=== PATIENT | male | born 1965 | race Caucasian/White ===

== ENCOUNTER 2017-01-31 00:44 | Inpatient (IN) | payer SELFPAY ==
[~2017-01-31] VITALS: Ht 170.2 cm; Wt 163.3 kg
[~2017-01-31 00:44] MED LIST: ACET500T33 PO; ASPI81TA2 PO; ATOR20TA58 PO; CEPH-264 PO; CYAN500T PO; DIPH25CA58 PO; DOCU-27 PO; FURO20TA3 PO; HYDR-2666 PO; LISI10TA2 PO; MORP30TA PO; MULT1TAB13 PO; NAPR500T3 PO; POTA20TA4 PO
--- NOTE | 2017-01-31 00:48 | ED.ADGEN ---
Past History Past Medical History: Cancer, Depression, Hypertension, Other Past Surgical History: Other Smoking: Non-smoker Alcohol Use: None Drug Use: None Adult General Chief Complaint Chief Complaint ".. I ve been short of breath the last 10 days.. but much more tonight... My had a cold.. but she got over it... but I ve just gotten worse..." HPI HPI Patient is a 51 year old male who presents with above hx and complaints non- productive cough and wheezing. Patient has been using his inhaler without any improvement. Patient denies any travel. Patient denies any other ill contacts other than his . Patient has significant medical history of non-Hodgkin's lymphoma and chemotherapy at . Has been in remission for the past 2 years. Patient did get a flu vaccination in September, But on a prednisone taper right afterwards. Patient has had Pneumovax. Patient normally follows with at . Patient also has a history of hypertension and depression. Review of Systems Review of Systems Constitutional: Subjective Hx of fever or chills [] Eyes: Denies change in visual acuity, redness, or eye pain [] HENT: Hx off nasal congestion and sore throat [] Respiratory: Hx non productive cough and shortness of breath [] Cardiovascular: No additional information not addressed in HPI [] GI: Denies abdominal pain, nausea, vomiting, bloody stools or diarrhea [] : Denies dysuria or hematuria [] Musculoskeletal: Denies back pain or joint pain [] Integument: Denies rash or skin lesions [] Neurologic: Denies headache, focal weakness or sensory changes [] Endocrine: Denies polyuria or polydipsia [] Family History Family History with cold Current Medications Current Medications Current Medications Medications (Trade) Dose Ordered Sig/Perry Start Time Stop Time Status Last Admin Dose Admin Albuterol Sulfate (Ventolin) 2.5 mg 1X PRN PRN 01/31/17 04:30 01/31/17 14:37 DC 01/31/17 14:15 2.5 MG Albuterol/ Ipratropium (Duoneb) 3 ml 1X ONCE 01/31/17 03:00 01/31/17 03:01 DC 01/31/17 02:36 3 ML Aspirin 324 mg 324 mg 1X ONCE 01/31/17 01:15 01/31/17 01:16 DC 01/31/17 01:46 324 MG Azithromycin (Zithromax) 500 mg 1X ONCE 01/31/17 03:30 01/31/17 03:31 DC 01/31/17 03:37 500 MG Ceftriaxone Sodium (Rocephin Im) 1 gm 1X ONCE 01/31/17 01:30 01/31/17 01:31 DC 01/31/17 01:47 1 GM Diphenhydramine HCl (Benadryl) 50 mg QIDPRN PRN 01/31/17 04:30 01/31/17 14:38 DC Info (Do NOT chart on this entry -- for MONITORING) 1 each PRN DAILY PRN 01/31/17 03:15 02/02/17 03:14 Iohexol (Omnipaque 300 Mg/ml) 75 ml 1X ONCE 01/31/17 03:15 01/31/17 03:16 DC 01/31/17 03:20 75 ML Lactated Ringer's (Iv Lactated Ringers) 1,000 ml @ 100 mls/hr Q10H 01/31/17 01:00 01/31/17 01:46 100 MLS/HR Methylprednisolone Sodium Succinate (Solu-Medrol 125mg Vial) 125 mg 1X ONCE 01/31/17 01:30 01/31/17 01:31 DC 01/31/17 01:47 125 MG Ondansetron HCl (Zofran) 4 mg PRN Q4HRS PRN 01/31/17 04:30 02/01/17 04:29 Potassium Chloride (KCl Oral Soln) 40 meq 1X ONCE 01/31/17 04:00 01/31/17 04:01 DC 01/31/17 03:37 40 MEQ See nursing for home meds. Allergies Allergies Allergies Coded Allergies Type Severity Reaction Last Updated Verified cat pelt standardized extract Allergy Severe Anaphylaxis 06/28/14 Yes Physical Exam Physical Exam Constitutional: in acute distress, non-toxic appearance. [] HENT: Normocephalic, atraumatic, bilateral external ears normal, oropharynx moist,injected pharynx, no oral exudates, nose rhinorrhea. Eyes: PERRLA, EOMI, conjunctiva normal, no discharge. [] Neck: Normal range of motion, no tenderness, supple, no stridor. [] More 17 inches circumference Cardiovascular: Tachycardia Heart rate regular rhythm, no murmur [] Lungs & Thorax: Bilateral breath equal with at apex, basilar crackles on auscultation . Coughing spasms. Non-productive. Scattered wheezes.[]. Peak flow 200- 400/predicted 520. Abdomen: Bowel sounds normal, soft, no tenderness, no masses, no pulsatile masses. Obese. Skin: Warm, dry, no erythema, no rash. [] Veinous stasis changes to legs. Back: No tenderness, no CVA tenderness. [] Extremities: No tenderness, no cyanosis, no clubbing, ROM intact, no edema. [] Neurologic: Alert and oriented X 3, normal motor function, normal sensory function, no focal deficits noted. [] Psychologic: Affect anxious, judgement normal, mood normal. [] Current Patient Data Vital Signs Vital Signs Date Time Temp Pulse Resp B/P Pulse Ox O2 Delivery O2 Flow Rate FiO2 01/31/17 02:35 95 Room Air 01/31/17 02:19 75 24 135/62 01/31/17 01:06 97.9 Lab Results Laboratory Tests Test 01/31/17 01:45 01/31/17 01:50 01/31/17 02:35 White Blood Count 13.2x10^3/uL (4.0-11.0) H Red Blood Count 4.45x10^6/uL (4.30-5.70) Hemoglobin 12.6g/dL (13.0-17.5) L Hematocrit 38.6% (39.0-53.0) L Mean Corpuscular Volume 87fL (79-100) Mean Corpuscular Hemoglobin 28pg (25-35) Mean Corpuscular Hemoglobin Concent 33g/dL (31-37) Red Cell Distribution Width 14.4% (11.5-14.5) Platelet Count 224x10^3/uL (140-400) Neutrophils (%) (Auto) 56% (31-73) Lymphocytes (%) (Auto) 33% (24-48) Monocytes (%) (Auto) 8% (0-9) Eosinophils (%) (Auto) 2% (0-3) Basophils (%) (Auto) 0% (0-3) Neutrophils # (Auto) 7.4x10^3uL (1.8-7.7) Lymphocytes # (Auto) 4.3x10^3/uL (1.0-4.8) Monocytes # (Auto) 1.1x10^3/uL (0.0-1.1) Eosinophils # (Auto) 0.3x10^3/uL (0.0-0.7) Basophils # (Auto) 0.0x10^3/uL (0.0-0.2) Prothrombin Time 9.9SEC (9.4-11.4) Prothrombin Time INR 1.0 (0.9-1.1) PTT 26SEC (23-33) D-Dimer (Yesenia) 0.33mg/L (0.00-0.50) Sodium Level 144mmol/L (136-145) Potassium Level 3.3mmol/L (3.5-5.1) L Chloride Level 106mmol/L (98-107) Carbon Dioxide Level 33mmol/L (21-32) H Anion Gap 5 (6-14) L Blood Urea Nitrogen 12mg/dL (8-26) Creatinine 1.2mg/dL (0.7-1.3) Estimated GFR (Cockcroft-Gault) 64.4 Glucose Level 127mg/dL (70-99) H Calcium Level 9.4mg/dL (8.5-10.1) Magnesium Level 1.9mg/dL (1.8-2.4) Total Bilirubin 0.2mg/dL (0.2-1.0) Direct Bilirubin 0.1mg/dL (0.0-0.2) Aspartate Amino Transferase (AST) 50U/L (15-37) H Alanine Aminotransferase (ALT) 68U/L (16-63) H Alkaline Phosphatase 88U/L (46-116) Creatine Kinase 287U/L (39-308) Creatine Kinase MB (Mass) 1.7ng/mL (0.0-3.6) Creatine Kinase MB Relative Index 0.6% (0-4) Troponin I Quantitative < 0.017ng/mL (0-0.055) WV-Arv-U-Type Natriuretic Peptide 125pg/mL (0-124) H Total Protein 6.9g/dL (6.4-8.2) Albumin 3.3g/dL (3.4-5.0) L Lipase 146U/L (73-393) Thyroid Stimulating Hormone (TSH) 2.262uIU/mL (0.358-3.740) Influenza Type A (Rapid) Negative (NEGATIVE) Influenza Type B (Rapid) Negative (NEGATIVE) Urine Collection Type Void Urine Color Straw Urine Clarity Clear Urine pH 5.5 Urine Specific [place] 1.015 Urine Protein Neg (NEG-TRACE) Urine Glucose (UA) Negmg/dL (NEG) Urine Ketones (Stick) Negmg/dL (NEG) Urine Blood Neg (NEG) Urine Nitrite Neg (NEG) Urine Bilirubin Neg (NEG) Urine Urobilinogen Dipstick 0.2mg/dL (0.2 mg/dL) Urine Leukocyte Esterase Neg (NEG) Urine RBC 0/HPF (0-2) Urine WBC 0/HPF (0-4) Urine Squamous Epithelial Cells Few/LPF Urine Bacteria Few/HPF (0-FEW) Urine Opiates Screen Neg (NEG) Urine Methadone Screen Neg (NEG) Urine Barbiturates Neg (NEG) Urine Phencyclidine Screen Neg (NEG) Urine Amphetamine/Methamphetamine Neg (NEG) Urine Benzodiazepines Screen Neg (NEG) Urine Cocaine Screen Neg (NEG) Urine Cannabinoids Screen Neg (NEG) Urine Ethyl Alcohol Neg (NEG) Group A Streptococcus Rapid Negative (NEGATIVE) EKG EKG My interpretation of EKG shows sinus 77, Lt. axis, non-specific contour changes , anteroseptal area, no findings of acute STEMI with contralateral changes. [] Radiology/Procedures Radiology/Procedures My interpretation of CXR show port. patchy viral pattern. No large infiltrate. CT results pending at time of admission, my interpretation show no large infiltrate or large PE in larger vessels. Course & Med Decision Making Course & Med Decision Making Pertinent Labs and Imaging studies reviewed. (See chart for details) Discussed presentation, testing and tx. plan with Dr. Machuca Will admit for further eval and tx. [] Final Impression Final Impression 1. Dyspnea[] 2. Leukocytosis 3. Anemia 4. Morbid Obesity 5. Hx of Non- Hodgkin's lymphoma postchemotherapy- 2 yrs ago 6. Elevated AST/ALT 7. Hypokalemia 8. Hx. of Sleep Apnea Problems: Dragon Disclaimer Dragon Disclaimer This electronic medical record was generated, in whole or in part, using a voice recognition dictation system. GARY OTTO MD Jan 31, 2017 00:48
[2017-01-31] MEDS ORDERED: IV RINGERS SOLUTION,LACTATED 1,000 ML IV SCH (01:00)
--- NOTE | 2017-01-31 01:00 | EKG ---
[address] [address] Test Date: 2017-01-31 Test Time: 01:00:09 Pat Name: SORIN QUINTEROS Department: Room: Gender: M Front End Software Engineer: MANOLO : 1965 Requested By: GARY OTTO Order Number: [id number] Reading MD: Measurements Intervals [place] Rate: 77 P: 51 SC: 164 QRS: -16 QRSD: 96 T: 52 QT: 374 QTc: 425 Interpretive Statements SINUS RHYTHM LEFTWARD AXIS QRS(T) CONTOUR ABNORMALITY CONSIDER ANTEROSEPTAL MYOCARDIAL DAMAGE POSSIBLY ABNORMAL ECG RI6.01 Unconfirmed report Compared to ECG 05/23/2013 20:02:42 Left anterior fascicular block no longer present
[2017-01-31] MEDS ORDERED: IPRATRPIUM/ALBUTEROL 0.5/2.5MG 3 ML NEBU. NEB ONE ×2 (01:15→03:00)
[2017-01-31] MEDS ORDERED: ASPIRIN 81 MG TAB.CHEW PO ONE (01:15)
[2017-01-31] MEDS ORDERED: methylPREDNISolone SOD SUCC PF 125 MG/2 ML VIAL. IV ONE (01:30)
[2017-01-31] MEDS ORDERED: CEFTRIAXONE IM 1 GM VIAL. IM ONE (01:30)
[2017-01-31 02:12] LABS: BASO % 0 % (0-3); EOS # 0.3 x10^3/uL (0.0-0.7); EOS % 2 % (0-3); HEMATOCRIT 38.6 % (39.0-53.0); HEMOGLOBIN 12.6 g/dL (13.0-17.5); LYMPH # 4.3 x10^3/uL (1.0-4.8); LYMPH % 33 % (24-48); MEAN CORPUSCULAR HEMOGLOBIN 28 pg (25-35); MEAN CORPUSCULAR HGB CONC 33 g/dL (31-37); MEAN CORPUSCULAR VOLUME 87 fL (79-100); MONO # 1.1 x10^3/uL (0.0-1.1); MONO % 8 % (0-9); NEUT # 7.4 x10^3uL (1.8-7.7); NEUT % 56 % (31-73); PLATELET COUNT 224 x10^3/uL (140-400); RED BLOOD COUNT 4.45 x10^6/uL (4.30-5.70); RED CELL DISTRIBUTION WIDTH 14.4 % (11.5-14.5); WHITE BLOOD COUNT 13.2 x10^3/uL (4.0-11.0)
[2017-01-31 02:16] LABS: BILIRUBIN,URINE NEG (NEG); CLARITY,URINE CLEAR; COLOR,URINE STRAW; GLUCOSE,URINE NEG (NEG); NITRITE,URINE NEG (NEG); RBC,URINE 0 /HPF (0-2); UROBILINOGEN,URINE 0.2 mg/dL (0.2 mg/dL)
[2017-01-31 02:17] LABS: BACTERIA,URINE FEW /HPF (0-FEW); SQUAMOUS EPITHELIAL CELL,UR FEW /LPF; WBC,URINE 0 /HPF (0-4)
[2017-01-31 02:21] LABS: INFLUENZA A PATIENT NEGATIVE (NEGATIVE); INFLUENZA B PATIENT NEGATIVE (NEGATIVE)
[2017-01-31 02:21] LABS: BARBITURATES NEG (NEG); BENZODIAZEPINES NEG (NEG); CANNABINOIDS NEG (NEG); COCAINE NEG (NEG); METHADONE NEG (NEG); OPIATES NEG (NEG); PHENCYCLIDINE NEG (NEG)
[2017-01-31 02:22] LABS: AMPHETAMINE/METHAMPHETAMINE NEG (NEG)
[2017-01-31 02:35] LABS: ALBUMIN 3.3 g/dL (3.4-5.0); CALCIUM 9.4 mg/dL (8.5-10.1); CREATININE 1.2 mg/dL (0.7-1.3); DIRECT BILIRUBIN 0.1 mg/dL (0.0-0.2); GFR 64.4; MAGNESIUM 1.9 mg/dL (1.8-2.4); POTASSIUM 3.3 mmol/L (3.5-5.1); TOTAL BILIRUBIN 0.2 mg/dL (0.2-1.0); TOTAL PROTEIN 6.9 g/dL (6.4-8.2)
[2017-01-31] MEDS ORDERED: DIPHENHYDRAMINE 50 MG/ML VIAL IVP ONE (03:15)
[2017-01-31] MEDS ORDERED: CONTRAST GIVEN MC PRN (03:15)
[2017-01-31] MEDS ORDERED: IOHEXOL 300 MG/ML 75 ML VIAL. IV ONE (03:15)
[2017-01-31] MEDS ORDERED: AZIT250T PO (03:21)
[2017-01-31] MEDS ORDERED: PRED50TA PO (03:21)
[2017-01-31] MEDS ORDERED: ALBU18HF IH (03:24)
[2017-01-31] MEDS ORDERED: AZITHROMYCIN 250 MG TABLET. PO ONE (03:30)
--- NOTE | 2017-01-31 03:37 | RAD ---
CT thorax with contrast Indication: Chest pain, cough and dyspnea. Axial imaging through the chest was performed after the administration of intravenous contrast utilizing the CT angiography protocol. Multiplanar, 3D and MIP reformations were also performed. Comparison is made with prior CT from 08/10/2012. Overall quality appears to be suboptimal, perhaps owing to patient body habitus. Images are very grainy. Central pulmonary arteries appear to be patent. No thromboembolism or filling defects are seen. The thoracic aorta is normal caliber. No definite dissection is identified. No pericardial or pleural fluid is identified. No pulmonary infiltrates, nodules or masses are seen. Impression: Limited quality. No definite evidence of pulmonary embolism or thoracic aortic dissection is identified. Electronically signed by: Abdi Chopra MD (Jan 31, 2017 03:36:25)
[2017-01-31] MEDS ORDERED: POTASSIUM CHLORIDE 20 MEQ/15 ML ORAL LIQUID. PO ONE (04:00)
[2017-01-31] MEDS ORDERED: ALBUTEROL SULFATE 2.5 MG/3 ML NEBU. NEB PRN (04:30)
[2017-01-31] MEDS ORDERED: ONDANSETRON PF 4 MG/2 ML VIAL. IV PRN (04:30)
[2017-01-31] MEDS ORDERED: DIPHENHYDRAMINE HCL 50 MG CAPSULE PO PRN (04:30)
[2017-01-31 05:40] VITALS: BP 131/85
[2017-01-31] MEDS: IPRATRPIUM/ALBUTEROL 0.5/2.5MG 3 ML NEBU. NEB SCH ×4 (06:06→20:32)
--- NOTE | 2017-01-31 07:59 | RAD ---
Indication: Dyspnea today. Non-Hodgkin's lymphoma in remission. Technique: Two-view chest radiograph was obtained. Comparison is from May 23, 2013. Findings: There is minimal atelectasis or less likely infiltrate in the left lung base. The lungs otherwise are clear. Cardiomediastinal silhouette is probably within normal limits, is unchanged. Slight widening of the mediastinum superiorly had similar appearance on prior. Subsequent CT chest does not demonstrate any superior mediastinal adenopathy. There is no pleural effusion. Prominent pleural fat bilaterally is noted. Port is noted. Impression: Minimal atelectasis in the left lung base.
[2017-01-31 08:00] VITALS: BP 141/56
[2017-01-31] MEDS: AZITHROMYCIN 250 MG TABLET. PO SCH (08:20)
[2017-01-31] MEDS ORDERED: methylPREDNISolone SOD SUCC PF 125 MG/2 ML VIAL. IV SCH (09:00)
[2017-01-31] MEDS: ACETAMINOPHEN 500 MG TABLET PO PRN ×2 (11:01→21:14)
[2017-01-31 12:00] VITALS: BP 125/85
[2017-01-31] MEDS ORDERED: ACETAMINOPHEN 500 MG TABLET PO PRN (14:15)
[2017-01-31] MEDS ORDERED: DOCUSATE SODIUM 100 MG CAPSULE PO PRN (14:15)
--- NOTE | 2017-01-31 14:37 | ACF ---
Admission Criteria Forms PULMONARY DISEASE GRG Clinical Indications for Admission to Inpatient Care ( Place 'X' for any and all applicable criteria): Hospital admission is needed for appropriate care of the patient because of ANY ONE of the following(1): [ ]I. Impending or actual respiratory arrest ( Use Respiratory Failure Criteria for severe respiratory disease and long-term mechanical ventilation patients) (4) [X ]II. Severe airflow or ventilation abnormalities (not responsive to emergency and observation care treatment as appropriate) as indicated by ANY ONE of the following(5)(6)(7)(8) : [ ]a) PCO2 > 42 mm Hg (5.6 kPa) and pH < 7.35 (new) [ ]b) Documented PCO2 increase > 5 mm Hg (0.7 kPa) from disease baseline [ ]c) Airflow measurements[A] < 60% of previous best or predicted ( e.g., PEF <300 L/minute) despite intensive emergent treatment[B] [X ]d) Required respiratory treatments that are performable only in acute inpatient setting [ ]III. Severe respiratory findings (not responsive to emergency and observation care treatment as appropriate) including ANY ONE of the following(5)(8)(9): [ ]a) Respiratory distress as indicated by ALL of the following(5)(10): [ ]i) Patient with ANY ONE of the following: [ ]1) Dyspnea (difficulty breathing) [ ]2) Abnormal breathing pattern (eg, chest retractions) [ ]3) Tachypnea [ ]4) Other evidence of difficulty breathing [ ]ii) Evidence of respiratory compromise indicated by ANY ONE of the following: [ ]1) Hypoxemia [ ]2) Altered mental status [ ]3) Other evidence of respiratory compromise (eg, pulmonary edema on chest x-ray) [ ]b) Stridor [ ]c) Gross hemoptysis(11) [ ]d) Acute cyanosis [ ]IV. High-risk pulmonary infection as indicated by ANY ONE of the following( 19)(20)(21)(22): [ ]a) Temperature less than 95 degrees F(35 degrees C) or greater than 103.1 degrees F(39.5 degrees C) [ ]b) Hemodynamic instability that remains after emergency or observation level care (as appropriate) [ ]c) Immunocompromised patient (eg, AIDS, post transplant, neutropenic) [ ]d) History of severe COPD [ ]e) History of severely symptomatic congestive heart failure [ ]f) Other high-risk comorbidity (eg, poorly controlled diabetes, cirrhosis, chronic renal insufficiency) [ ]g) Hypoxemia (new) [ ]h) Outpatient, observation, or recovery facility therapy has failed, is not appropriate, or is not feasible [ ]V. Severe atelectasis or lung collapse(15)(16) [ ]. Tuberculosis requiring inpatient treatment as indicated by ANY ONE of the following(17)(18): [ ]a) New positive acid-fast bacilli sputum smear [ ]b) Positive acid-fast bacilli smear (under current treatment), with ANY ONE of the following: [ ]i) Unexposed household contacts [ ]ii) Infants or immunosuppressed household contacts [ ]iii) Patient unable or unwilling to avoid exposing others [ ]iv) Severe immunocompromised patient (eg, AIDS, post transplant, neutropenic) [ ]VII. Empyema or lung abscess(13)(14) [ ]VIII. Severe pulmonary arterial hypertension or pulmonary vascular disease requiring inpatient care indicated by ANY ONE of the following(24)(25): [ ]a) Initiation or change of vasodilators (IV, subcutaneous, or inhaled) or other vasoactive medications needed [ ]b) IV anticoagulation needed (eg, immediate anticoagulation necessary, alternatives not appropriate) [ ]c) Arterial or pulmonary artery catheter monitoring needed due to infusion or other treatment [ ]IX. Chronic lung disease with severe deterioration (not responsive to emergency and observation care treatment as appropriate) as indicated by ANY ONE of the following (6)(12): [ ]a) SaO2 5% below baseline in patient with chronic hypoxemia [ ]b) New requirement for supplemental oxygen to keep SaO2 at baseline or acceptable level [ ]c) Required supplemental oxygen performable only in acute inpatient setting [ ]d) Severe airflow or ventilation abnormalities [ ]e) Rapid rate of exacerbation onset [ ]f) Previously mobile patient unable to walk between rooms [ ]g) Inability to eat or sleep due to dyspnea [ ]h) Altered mental status [ ]X. Cystic fibrosis with severe deterioration as indicated by ANY ONE of the following(26)(27): [ ]a) Severe exacerbation that does not respond to intensified home therapy [ ]b) Pneumonia [ ]c) Hemoptysis [ ]d) Atelectasis [ ]e) Pneumothorax [ ]f) Respiratory failure [ ]g) Severe exacerbation with patient unable to perform prescribed treatments at home [ ]XI. Severe right heart failure as indicated by ANY ONE of the following(24) (25): [ ]a) Increasing organ failure (eg, liver congestion with significant and worsening or new elevation of transaminases) [ ]b) Anasarca [ ]c) Angina that requires inpatient care (eg, not treatable in emergency or observation level of care) [ ]d) Respiratory distress [ ]e) Syncope [ ]f) SBP < 90 mm Hg (new) [ ]XII. Injury requiring inpatient care (medical) as indicated by ANY ONE of the following(28): [ ]a) Significant inhalation injury (eg, smoke inhalation, other toxic inhalation) (29)(30)(31) [ ]b) Airway obstruction that remains or is unstable after emergency or observation level care(32) [ ]c) Severe pain requiring acute inpatient management [ ]d) Lung contusion [ ]e) Bronchial tree injury [ ]f) Air or fat emboli(33) [ ]g) Other injury not treatable in emergency or observation level care (eg, hemothorax) (34) [ ]XIII. Pulmonary hemorrhage or significant hemoptysis(11)(35)(36) [ ]XIV. Inpatient palliative care needed[C](37)(38)(39)(40) [ ]XV. Complications of lung transplant (eg, rejection, failure, respiratory infection) (23) [ ]XVI. Pulmonary Disease and ANY ONE of the following: [ ]a) General Admission Criteria [ ]b) Pediatric General Admission Criteria [facility] has been revised. The portions of the content which have been revised are identified through the use of italic text or in bold, and [facility] has neither reviewed nor approved the modified material. All other unmodified content is copyright [facility]. Please see references footnoted in the original [facility] edition 2016 GENERAL ADMISSION CRITERIA (Place 'X' for any and all applicable criteria): Admission is indicated for ANY ONE of the following: [ ]I. Hemodynamic instability as indicated by ANY ONE of the following(1)(2) (3)(4)(5): [ ]a) Vital sign abnormality not readily corrected by appropriate treatment within 12 to 24 hours indicated by ANY ONE of the following: [ ]i) Hypotension [ ]ii) Symptomatic Tachycardia unresponsive to treatment (eg , analgesia, fluids, sedation as indicated) [ ]iii) Orthostatic vital sign changes unresponsive to treatment (eg, fluids) [ ]b) Vital sign abnormality that is severe indicated by ANY ONE of the following: [ ]i) Inadequate perfusion indicated by ANY ONE of the following: [ ]1) Lactic acidosis (greater than 2 mmol/L) [ ]2) New abnormal capillary refill (greater than 3 seconds) [ ]3) Other metabolic acidosis (arterial pH less than 7.35) not otherwise explained [ ]4) Reduced urine output [ ]5) Altered mental status [ ]6) Myocardial Ischemia [ ]v) Mean arterial pressure[A] less than 60 mm Hg [ ]vi) Mean arterial pressure[A] less than 70 mm Hg after 30 minutes of appropriate treatment (eg, fluid resuscitation) [ ]vii) IV inotropic or vasopressor medication required to maintain adequate blood pressure or perfusion [ ]viii) Sustained heart rate greater than 120 beats per minute in adult or child 6 years or older[B]] [ ]II. Hypertension requiring inpatient treatment as indicated by ANY ONE of the following(6)(7)(8): [ ]a) SBP greater than 220 mm Hg or DBP greater than 120 mm Hg despite treatment [ ]b) SBP greater than 140 mm Hg or DBP greater than 100 mm Hg with evidence of acute end organ damage as indicated by ANY ONE of the following: [ ]i) Encephalopathy [ ]ii) Acute renal failure as indicated by new onset of ANY ONE of the following(9)(10)(11)(12)(13): [ ]1) A 3-fold rise in serum creatinine from baseline [ ]2) Serum creatinine greater than 4 mg/dL ( 354 micromoles/L) with acute rise greater than 0.5 mg/dL (44.2 micromoles/L) [ ]3) Reduction of more than 75% in estimated glomerular filtration rate from baseline [ ]4) Estimated glomerular filtration rate less than 35 mL/min/1.73m2 (0.59 mL/sec/1.73m2) in child up to 18 years of age [ ]5) Cessation of urine output indicated by ALL of the following: [ ]A. Adequate volume status [ ]B. Inadequate urine output as indicated by ANY ONE of the following: [ ]a. Urine output less than 0.3 mL/kg/hr for 24 hours [ ]b. Anuria (urine output less than 0.1 mL/kg/hr) for 12 hours [ ]iii) Aortic dissection [ ]iv) Myocardial ischemia [ ]v) Left ventricular heart failure [ ]vi) Retinal hemorrhage [ ]vii) Other significant finding [ ]c) Hypertension in child requiring inpatient treatment as indicated by ALL of the following(14)(15)(16): [ ]i) Outpatient treatment not effective, not available, or not appropriate [ ]ii) SBP or DBP greater than 95th percentile for age [ ]iii) Evidence of acute end organ damage as indicated by ANY ONE of the following: [ ]1) Altered mental status [ ]2) Acute renal failure as indicated by new onset of ANY ONE of the following(9)(10)(11)(12)(13): [ ]A. A 3-fold rise in serum creatinine from baseline [ ]B. Serum creatinine greater than 4 mg/dL (354 micromoles/L) with acute rise greater than 0.5 mg/dL (44.2 micromoles/L) [ ]C. Reduction of more than 75% in estimated glomerular filtration rate from baseline [ ]D. Estimated glomerular filtration rate less than 35 mL/min/1.73m2 (0.59 mL/sec/1.73m2)in child up to 18 years of age [ ]E. Cessation of urine output indicated by ALL of the following: [ ]a. Adequate volume status [ ]b. Inadequate urine output as indicated by ANY ONE of the following: [ ]1) Urine output less than 0.3 mL/kg/hr for 24 hours [ ]2) Anuria (urine output less than 0.1 mL/kg/hr) for 12 hours [ ]3) Severe headache [ ]4) Visual disturbance [ ]5) Retinal hemorrhage [ ]6) Other significant finding [ ]III. Acute cardiac or peripheral ischemia as indicated by ANY ONE of the following: [ ]a) Acute coronary syndrome(17)(18) [ ]b) Acute peripheral ischemia (eg, pulseless, cool, mottled, or cyanotic extremity)(19) [ ]IV. Cardiac arrhythmias or findings of immediate concern indicated by ANY ONE of the following(20)(21): [ ]a) Heart rhythms that are inherently dangerous or unstable indicated by ANY ONE of the following(22)(23)(24): [ ]i) Resuscitated ventricular fibrillation or cardiac arrest [ ]ii) Ventricular escape rhythm [ ]iii) Sustained ventricular tachycardia (30 seconds or more of ventricular rhythm at greater than 100 beats per minute) [ ]iv) Nonsustained ventricular tachycardia and ANY ONE of the following: [ ]1) Suspected cardiac ischemia as cause or consequence of ventricular tachycardia [ ]2) In setting of acute myocarditis [ ]b) Unstable cardiac conduction defects indicated by ANY ONE of the following(24)(25)(26): [ ]i) Type II second-degree atrioventricular block [ ]ii) Third-degree atrioventricular block [ ]iii) New-onset left bundle branch block with suspected myocardial ischemia [ ]c) Any heart rhythm and ANY ONE of the following(22)(23)(27)(28)( 29): [ ] i) Continuous long-term ECG monitoring needed (eg, initiation of drug requiring monitoring for more than 24 hours) [ ] ii) Patient has automatic implanted cardioverter defibrillator that is repeatedly firing, malfunctioning, or in need of immediate adjustment of settings beyond the scope of ambulatory or observation care. [ ]d) Heart rhythms of concern due to ANY ONE of the following: [ ]i) Hypotension [ ]ii) Respiratory distress [ ]iii) Association with other significant symptoms (eg, bradycardia with syncope or ongoing dizziness, supraventricular tachycardia with chest pain) (27)(28) (30) [ ] V. Severe heart failure as indicated by ANY ONE of the following ( 31)(32): [ ]a) Respiratory distress [ ]b) Hypotension [ ]c) Anasarca (refractory to outpatient therapy) [ ]d) Cardiac arrhythmias of immediate concern [ ]e) Myocardial ischemia [ ]. Respiratory abnormalities, including ANY ONE of the following(33)(34) (35)(36): [ ]a) Respiratory rate greater than 30 breaths per minute unresponsive to treatment [A] [ ]b) New saturation of arterial oxygen less than 90% [ ]c) New partial pressure of carbon dioxide greater than 44 mm Hg ( 5.9 kPa) [ ]d) Supplemental oxygen or respiratory treatments needed that are new or not performable at other levels of care [ ]e) New-onset cyanosis [ ]f) Inability to protect airway [ ]g) Chronic lung disease with severe deterioration (not responsive to emergency and observation care treatment as appropriate) as indicated by ANY ONE of the following(34)(36 ): [ ]i) SaO2 5% below baseline in patient with chronic hypoxemia [ ]ii) New requirement for supplemental oxygen to keep SaO2 at baseline or acceptable level [ ]iii) Required supplemental oxygen performable only in acute inpatient setting [ ]iv) Severe airflow or ventilation abnormalities [ ]v) Previously mobile patient unable to walk between rooms [ ]vi Inability to eat or sleep due to dyspnea [ ]vii) Rapid rate of exacerbation onset [ ]viii) Altered mental status ]VII. Severe airflow or ventilation abnormalities (not responsive to emergency and observation care treatment as appropriate) as indicated by ANY ONE of the following(33)(34)(35)(37): [ ]a) PCO2 greater than 42 mm Hg (5.6 kPa) and pH less than 7.35 (new ) [ ]b) Documented PCO2 increased more than 5 mm Hg (0.7 kPa) from disease baseline [ ]c) Airflow measurements [B] less than 60% of previous best or predicted (eg, peak expiratory flow rate less than 300 L/minute) despite intensive emergent treatment [C] [ ]d) Required respiratory treatments that are performable only in acute inpatient setting [ ]VIII. Impending or actual respiratory arrest ( Also use Respiratory Failure GRG for severe respiratory disease and long-term mechanical ventilation patients) [ ]IX. Neurologic abnormalities, including ANY ONE of the following: [ ]a) New findings that suggest ANY ONE of the following: [ ]i) [employer] infection(38) [ ]ii) Cerebral bleeding, ischemia, or vasospasm(39)(40) [ ]iii) Increased intracranial pressure, hydrocephalus, or cerebral edema(41)(42)(43) [ ]iv) Spinal cord injury(44) [ ]b) Uncontrolled seizures(45) [ ]c) New-onset coma (eg, [place] coma scale score less than 9) or unexplained abnormal mental status (eg, [place] coma scale score less than 14) [D](41)(46)(47) [ ]X. New-onset severe neurologic findings requiring inpatient care; examples include(42)(48)(49): [ ]a) Papilledema [ ]b) Cerebral edema [ ]c) Mass effect on CT scan [ ]XI. Suspected acute intra-abdominal process with peritoneal signs, abdominal mass, or similar findings (50)(51)(52) [ ]XII. Severe physiologic disorder remaining after emergency or observation level care (as appropriate) as indicated by ANY ONE of the following (53): [ ]a) Significant dehydration [ ]b) Diabetic ketoacidosis [ ]c) Hyperglycemic hyperosmolar state (eg, osmolality greater than 320 mOsm/kg (mmol/kg) [ ]d) Hypoglycemia [ ]e) Other (new) acid-base disorder with pH less than 7.35 or greater than 7.5(54) [ ]f) Thyroid storm (55) [ ]g) Myxedema coma (55) [ ]XIII. Abdominal abnormalities with ANY ONE of the following(56)(57): [ ]a) Absent bowel sounds with complete ileus [ ]b) Signs of intestinal obstruction or peritonitis [E] [ ]c) Nausea and vomiting that cannot be controlled with outpatient or observation care [ ]XIV. Acute renal failure as indicated by new onset of ANY ONE of the following(9)(10)(11)(12)(13): [ ]a) A 3-fold rise in serum creatinine from baseline [ ]b) Serum creatinine greater than 4 mg/dL (354 micromoles/L) with acute rise greater than 0.5 mg/dL (44.2 micromoles/L) [ ]c) Reduction of more than 75% in estimated glomerular filtration rate from baseline [ ]d) Estimated glomerular filtration rate less than 35 mL/min/ 1.73m2 (0.59 mL/sec/1.73m2) in child up to 18 years of age [ ]e) Cessation of urine output indicated by ALL of the following: [ ]i) Adequate volume status [ ]ii) Inadequate urine output as indicated by ANY ONE of the following: [ ]1) Urine output less than 0.3 mL/kg/hr for 24 hours [ ]2) Anuria (urine output less than 0.1 mL/kg/hr) for 12 hours [ ]XV. Significant uremic complications as indicated by ANY ONE of the following(58)(59)(60): [ ]a) Outpatient therapy is ineffective or not feasible for ANY ONE of the following: [ ]i) Severe heart failure [ ]ii) Severehypertension [ ]iii) Pleural effusion [ ]iv) Pericarditis or pericardial effusion [ ]b) Cardiac arrhythmias of immediate concern [ ]c) Intractable nausea or vomiting [ ]d) Recurrent seizures [ ]e) Encephalopathy [ ]f) Bleeding abnormalities (eg, platelet dysfunction) with active (eg, gastrointestinal) bleeding [ ]g) Dialysis indicated before long-term access or ambulatory arrangements can be made [ ]h) Significant metabolic or electrolyte abnormalities (eg, severe acidosis or hyperkalemia) [ ]XVI. High fever or other high-risk infection situation as indicated by ANY ONE of the following(61)(62)(63)(64): [ ]a) Outpatient and observation care antimicrobial treatment unavailable, not effective, or not appropriate [ ]b) Documented bacteremia [ ]c) Temperature greater than 40.5 degrees C (104.9 degrees F) ( oral) [ ]d) Temperature greater than 39.5 degrees C (103.1 degrees F) ( oral) or less than 36 degrees C (96.8 degrees F) (rectal) that does not respond to e treatment and observation care [ ] XVII. Temperature less than 95 degrees F (35 degrees C)(rectal)(65) [ ] XVIII. Severe nutritional abnormalities as indicated by ALL of the following (66)(67): [ ]a) Inability to tolerate or establish sufficient oral or other enteral nutrition in outpatient setting [ ]b) Parenteral nutrition regimen need that must be implemented on inpatient basis [ ] XIX. Severe electrolyte abnormalities indicated by ALL of the following(68) (69)(70): [ ]a) Electrolytes and associated findings are not as expected for patient baseline or acceptable treatment effects. [ ]b) Severe abnormalities indicated by ANY ONE of the following: [ ]i) Sodium less than 130 mEq/L (mmol/L) (new) [ ]ii)Sodium less than 135 mEq/L (mmol/L) with ANY ONE of the following: [ ]1) Uncorrectable (to near normal or chronic baseline) after trial of outpatient and emergency treatment [ ]2) Altered mental status [ ]3) Seizures [ ]4) Severe medical etiology requiring inpatient management (eg, heart failure, hypovolemia) [ ]iii) Sodium greater than 155 mEq/L (mmol/L) [ ]iv) Sodium greater than 150 mEq/L (mmol/L) with ANY ONE of the following: [ ]1) Uncorrectable (to near normal or chronic baseline) with outpatient and emergency treatment [ ]2) Altered mental status [ ]3) Seizures [ ]4) Severe medical etiology (eg, hypovolemia, diabetes insipidus) [ ]v) Potassium less than 2.5 mEq/L (mmol/L) despite outpatient and emergency treatment [ ]vi) Potassium less than 3 mEq/L (mmol/L) with ANY ONE of the following: [ ]1) Weakness [ ]2) Cardiac abnormality (eg, arrhythmia, conduction disturbance) [ ]3) Cardiac ischemia [ ]4) Ileus [ ]5) Ongoing medical cause requiring inpatient management (eg, acute renal wasting or SIADH) [ ]6) Other severe symptoms [ ]vii) Potassium greater than 6.5 mEq/L (mmol/L) [ ]viii) Potassium greater than 5 mEq/L (mmol/L) with ANY ONE of the following: [ ]1) Uncorrectable (to near normal or chronic baseline) with outpatient and emergency treatment [ ]2) Severe ECG findings [F] [ ]3) Acute worsening of renal failure (creatinine greater than 2.5 mg/dL (221 micromoles/L) or significant elevation for age and size) [ ]4) Severe weakness [ ]5) Severe medical etiology (eg, hemolysis, infection, drug overdose) [ ]ix) Calcium less than 7 mg/dL (1.75 mmol/L) despite outpatient and emergency treatment (72) [ ]x) Calcium less than 8 mg/dL (2 mmol/L) with significant symptoms or findings; examples include(72): [ ]1) Altered mental status [ ]2) Muscle spasms [ ]3) Seizures [ ]4) Breathing difficulty [ ]5) Cardiac abnormality (eg, arrhythmia or conduction disturbance) [ ]xi) Calcium greater than 14 mg/dL (3.5 mmol/L)(72) [ ]xii) Calcium greater than 12 mg/dL (3 mmol/L) with ANY ONE of the following(72): [ ]1) Uncorrectable (to near normal or chronic baseline) with outpatient and emergency treatment [ ]2) Significant dehydration or hypovolemia as indicated by ALL of the following(70)(73)(74): [ ]A. Not resolved with initial treatments [ ]B. Clinically significant dehydration as indicated by ANY ONE of the following: [ ]a. Vomiting refractory to outpatient treatment (ie, precluding oral rehydration) [ ]b. Inability to drink [ ]c. Hypernatremia or other electrolyte abnormality unable to be corrected with outpatient and emergency treatment [ ]d. Failure to remain hydrated with outpatient therapy [ ]e. Reduced urine output [ ]f. Hypotension [ ]g. Serious cause for dehydration requiring acute hospitalization (eg, bowel obstruction, increased intracranial pressure, infectious cause) [ ]h. Child with ANY ONE of the following(75): [ ]1) Severe abdominal tenderness [ ]2) Adequate care not available at home [ ]3) Severe dehydration ( greater than 9% loss of body weight) [ ]4) Significant symptoms or findings; examples include: [ ]A. Altered mental status [ ]B. Cardiac abnormality (eg, arrhythmia, conduction disturbance) [ ]C. Malignant etiology requiring inpatient treatment [ ]xiii) Phosphorus less than 1 mg/dL (0.32 mmol/L) [ ]xiv) Phosphorus less than 1.5 mg/dL (0.48 mmol/L) with ANY ONE of the following: [ ]1) Patient unresponsive to outpatient and emergency treatment [ ]2) Significant symptoms or findings; examples include: [ ]A. Weakness [ ]B. Altered mental status [ ]C. Breathing difficulty [ ]D. Seizures [ ]E. Rhabdomyolysis [ ]xv) Phosphorus greater than 10 mg/dL (3.2 mmol/L) [ ]xvi) Phosphorus greater than 4.5 mg/dL (1.45 mmol/L) (new) with ANY ONE of the following: [ ]1) Severe medical etiology (eg, crush injury, acute renal failure) [ ]2) Associated hypocalcemia with significant findings; examples include: [ ]A. Neurologic symptoms [ ]B. Altered mental status [ ]C. Muscle spasms [ ]D. Seizures [ ]E. Breathing difficulty [ ]F. Cardiac abnormality (eg, arrhythmia, conduction disturbance) [ ]xvii) Magnesium less than 1 mg/dL (0.41 mmol/L) [ ]xviii) Magnesium less than 1.5 mg/dL (0.62 mmol/L) with ANY ONE of the following: [ ]1) Patient unresponsive to outpatient and emergency treatment [ ]2) Associated hypocalcemia with significant findings; examples include: [ ]A. Altered mental status [ ]B. Muscle spasms [ ]C. Seizures [ ]D. Breathing difficulty [ ]E. Cardiac abnormality (eg, arrhythmia , conduction disturbance) [ ]3) Associated hypokalemia (potassium less than 3 mEq/L (mmol/L)) with risk of arrhythmia [ ]xix) Magnesium greater than 4 mEq/L (2 mmol/L) [ ]xx) Magnesium greater than 2.5 mEq/L (1.25 mmol/L) with significant symptoms or findings; examples include: [ ]1) Weakness [ ]2) Altered mental status [ ]3) Cardiac abnormality (eg, arrhythmia, conduction disturbance) [ ]4) Breathing difficulty [ ]5) Severe medical etiology (eg, renal failure, hypovolemia) [ ]xxi) Uric acid greater than 20 mg/dL (1190 micromoles/L)(76) [ ]xxii) Uric acid greater than 8 mg/dL (476 micromoles/L) with significant symptoms or findings of tumor lysis syndrome; examples include(76): [ ]1) Creatinine greater than 1.5 times upper limit of normal [ ]2) Cardiac abnormality (eg, arrhythmia, conduction disturbance) [ ]3) Seizure [ ]XX. Acute blood loss causing significant abnormality as indicated by ANY ONE of the following(77)(78): [ ]a) Hemoglobin less than 10 g/dL (100 g/L) (not baseline) [ ]b) Hematocrit less than 30% (0.30) (not baseline) [ ]c) Repeat hematocrit decreased more than 2% (0.02) [ ]d) Uncontrolled bleeding [ ]XXI. Severe anemia indicated by ANY ONE of the following(78)(79): [ ]a) Altered mental status [ ]b) Chest pain [ ]c) Exertional dyspnea [ ]d) Syncope [ ]e) Other findings suggesting inadequate perfusion [ ]f) Treatment with transfusion or volume replacement is ineffective at resolving ANY ONE of the following [G]: [ ]i) Tachycardia for age [ ]ii) Orthostatic vital sign changes as indicated by ANY ONE of the following(80): [ ]1) Fall in SBP of 20 mm Hg or more 1 to 3 minutes after patient sits or stands from recumbent position [ ]2) Fall in DBP of 10 mm Hg or more 1 to 3 minutes after patient sits or stands from recumbent position [ ]XXII. High-risk low platelet count as indicated by ANY ONE of the following( 81)(82): [ ]a) Severe or life-threatening bleeding (eg, intracranial, major gastrointestinal, or extensive mucosal bleeding), with any reduced platelet count [ ]b) Platelet count less than 20,000/mm3 (20 x109/L) with any active bleeding [ ]c) Platelet count less than 10,000/mm3 (10 x109/L) with minor purpura or petechiae [ ]d) Platelet count less than 5000/mm3 (5 x109/L) [ ]e) Low platelet count with hemolytic anemia [ ]XXIII. Disseminated intravascular coagulation(77)(83) [ ]XXIV. Severe adverse drug or systemic toxin reaction requiring inpatient treatment; examples include(84)(85): [ ]a) Serotonin syndrome(86) [ ]b) Neuroleptic malignant syndrome(86) [ ]c) Cholinergic syndrome with severe symptoms (eg, bronchorrhea, weakness, mental status changes, seizures) [ ]d) Sympathetic syndrome with severe symptoms (eg, seizures, mental status changes, cardiac dysrhythmias) [ ]e) Anticholinergic syndrome [ ]XXV. Severe pain requiring acute inpatient management as indicated by ALL of the following (87)(88)(89): [ ]a) Continuous or frequent (eg, every 2 to 4 hours) parenteral analgesics required [H] [ ]b) Rapid improvement expected from treatment or acute intervention (eg, surgery, anesthesia procedure) [ ]XXVI.Severe behavioral health issues judged unmanageable at a lower level of care (eg, residential) in a patient who is ANY ONE of the following(91) [ ]a) Acutely suicidal [ ]b) A danger to self (eg, self-mutilating or suicidal behavior) [ ]c) A danger to others (eg, assaultive or homicidal behavior) [ ]d) Incapacitated because of grave disability (eg, inability to provide for self at lower level of care) (92) [ X]XXVII. Inpatient monitoring needed; examples include(1)(3)(87)(93)(94)(95)( 96): [ X]a) Vital signs, neurologic signs, or vascular checks more frequently than every 4 hours [ ]b) Cardiac or respiratory monitoring beyond the scope (eg, over 24 hours) of observation care [ ]c) Pulmonary artery catheter monitoring [ ]d) Suspected compartment syndrome(97) (98) [ ]e) Cerebral bleeding, hydrocephalus, or vasospasm monitoring [ ]f) Increased intracranial pressure or cerebral edema monitoring [ ]g) monitoring [ ]XXVIII. Treatment requiring inpatient care; examples include: [ ]a) IV fluid to replace significant ongoing losses (greater than 3 L/m2 per day)(53) [ ]b) High concentration oxygen (greater than 40%)(33)(99)(100) [ ]c) Frequent respiratory therapy (more frequently than every 4 hours) to maintain airflow rates greater than 60% of baseline(33)(99)(100) [ ]d) Epidural analgesia(87) [ ]e) IV anticoagulation, vasoactive, or antiarrhythmic medication(19 )(23) [ ]f) Acute thrombolytics (generally require 24 hours of observation )(101)(102) [ ]XXIX. Emergency procedures needed; examples include: [ ]a) Emergency inpatient surgery [ ]b) Temporary pacemaker placement(103) [ ]c) Chest tube placement with active evacuation (eg, suction, drainage)(104) [ ]d) Emergent cardioversion(105) [ ]e) Emergent cardiac or vascular procedures (eg, cardiac catheterization, angioplasty) (17)(18) [ ]f) Emergent dialysis access placement and institution(10)(106) [ ]g) Emergent pericardiocentesis(107) [ ]h) Emergent plasmapheresis or leukapheresis(83) [ ]i) Emergent tracheostomy The original [employer] [facility] content created by [employer] has been revised. The portions of the content which have been revised are identified through the use of italic text or in bold, and [facility] has neither reviewed nor approved the modified material. All other unmodified content is copyright [employer]. Please see references footnoted in the original [employer] edition 2016 Admission Criteria Met?: Yes JESSIE BOLAND Jan 31, 2017 14:37
[2017-01-31] MEDS: methylPREDNISolone SOD SUCC PF 40 MG/ML VIAL. IV SCH ×2 (15:21→21:16)
[2017-01-31 16:00] VITALS: BP 146/56
--- NOTE | 2017-01-31 16:24 | HP ---
ADMIT DATE: 01/31/2017 HISTORY OF PRESENT ILLNESS: This is a 51-year-old male patient who came to the Emergency Room complaining of shortness of breath that has been going on for almost 3 weeks according to him. He has had recurrent bouts of cough with whitish to yellowish sputum. He has aches and pains all over. He also complained of orthopnea; however, he can lie flat when he is on his CPAP machine. Denied any chills, rigors or fever. He was investigated in the Emergency Room, was found to have Influenza A and B negative. Group A Streptococcus rapid test was negative. He has mild leukocytosis of 13,000. His D-dimer was normal and his chemistry showed hypokalemia and abnormal liver enzymes. He has had a CT scan of the chest with PE protocol, but that was negative and was admitted for acute bronchitis and bronchial asthma/COPD exacerbation. PAST MEDICAL HISTORY: Significant for hypertension, non-Hodgkin's lymphoma in remission diagnosed in 2011. His last chemotherapy was about 2 years ago. He seemed to have also nonalcoholic steatohepatitis, generalized osteoarthritis, morbid obesity, obstructive sleep apnea, apparently he had 2 sleep studies, both were consistent with obstructive sleep apnea. PAST SURGICAL HISTORY: Significant for right tibial fracture, status post open reduction and internal fixation; tonsillectomy, Port-A-Cath placement for chemotherapy that is still in place. He has also esophagogastroduodenoscopy and colonoscopy, during which he was found to have hemorrhoids. ALLERGIES: He has known drug allergy. He is allergic to cats. MEDICATIONS: He is currently on the following medications: He is on Tylenol 1000 mg every 8 hours as needed, albuterol sulfate 2 puffs 4 times a day, aspirin 81 mg once a day, atorvastatin calcium 20 mg once a day, azithromycin 250 mg daily, cyanocobalamin for vitamin B12 500 mcg once a day, diphenhydramine 25 mg every 6 hours as needed, Colace 100 mg twice a day, furosemide 20 mg once a day, hydrocodone/APAP 5/325 one tablet every 6 hours, lisinopril 10 mg once a day, morphine sulfate 30 mg b.i.d., multivitamin with mineral once a day, naproxen 500 mg every 8 hours and potassium chloride 20 mEq once a day. FAMILY HISTORY: He has 3 brothers, his oldest brother of heat exposure. The second brother has CVA, diabetes, and hypertension and the third brother is known to have hypertension. He has 2 sisters, who are apparently healthy. His father committed suicide at the age of 48. His mother at the age of 75 because of widespread metastatic cancer, the primary of which is unknown. SOCIAL HISTORY: He is . He has no children of his own. He never smoked, does not drink alcohol or use recreational drugs. REVIEW OF SYSTEMS: The patient denied any blurring of vision, cataract, glaucoma or macular degeneration. He has tinnitus, but denied any earache or sensorineural deafness. He has nasal stuffiness, but no postnasal drip or nose bleed. He has sore throat. Denied any difficulty swallowing. Denied any nausea, vomiting and diarrhea, but did complain of constipation. Denied any hematemesis, melena or hematochezia. Denied any dysuria, frequency or hematuria. He did complain of chest pain, shortness of breath, and orthopnea; however, he is able to lie flat when he is on CPAP machine. Denied any chills, rigors, or fever. Denied any dizziness, lightheadedness, or vertigo. PHYSICAL EXAMINATION: GENERAL: When I examined him, he was actually resting propped up in bed, clearly in no apparent distress. He was able to complete his sentence without difficulty. He was slightly tachypneic, but there is no pallor, jaundice, cyanosis, or thyromegaly. No jugular venous distension. No limb edema. VITAL SIGNS: His heart rate was 76, blood pressure was 133/59, temperature was 97.9, respiratory rate was 24, and oxygen saturation was 94% on 2 liters of oxygen by nasal cannula. HEAD, EYES, EARS, NOSE, AND THROAT: Showed normocephalic, atraumatic. NECK: Supple. HEART: Showed normal first and second heart sounds with no gallop, rub or murmur. CHEST: Clear to auscultation. No crepitation or rhonchi. ABDOMEN: Distended, soft, and nontender. NEUROLOGIC: He was awake, alert, responding appropriately. All cranial nerves are intact. EXTREMITIES: He moves extremities without difficulty. He normally is able to ambulate without assistance or assistive devices. LABORATORY DATA: While in the Emergency Room, he has lab work done showed serum sodium 144, potassium 3.3, chloride 106, bicarbonate 33, anion gap of 5, BUN 12, creatinine 1.2. His glucose was 127, calcium was 9.4, magnesium was 1.9. Total bilirubin and alkaline phosphatase were normal. AST and ALT were elevated. His total CK was 287. He has 2 sets of cardiac enzymes that were negative. His beta natriuretic peptide was 125. Total protein was 6.9, albumin was 3.4. Lipase 146 and TSH was 2.262. His white cell count was 13,200, hemoglobin 12.6, hematocrit 38.6, MCV 87 and platelet count 224,000 with normal manual differential. His prothrombin time was 9.9, INR 1, aPTT was 26. D-dimer was 0.33. His urinalysis was essentially unremarkable and was negative. Urine toxicology screen was also negative. His influenza A and B were negative as well as rapid group A streptococcus test was negative. IMAGING: He did have a chest x-ray, which showed that he has minimal atelectasis in the left lung base; however, CT scan of the chest with PE protocol showed that central pulmonary arteries appears to be patent, no thromboembolism or filling defects were seen. The thoracic aorta is normal in caliber. No definite dissection is identified. No pericardial or pleural fluid is identified. No pulmonary infiltrates, nodules or masses are seen. IMPRESSION: In summary, this is a gentleman who has been complaining of shortness of breath and cough that has been going on for almost 3 weeks now, has worsened over the last few days. No fever. He is known to have obstructive sleep apnea, questionable bronchial asthma. He has never smoked before. He is also on lisinopril and his cough is highly suggestive of lisinopril-induced cough. PLAN: My plan is to continue with the antibiotics. Continue with steroids as well as nebulized albuterol/Atrovent. I will discontinue his ERIN inhibitor and substitute with perhaps some either losartan or an ARB and we will follow him on a daily basis closely. ELSI TAM MD DR: JAVI/felipe JOB#: [id number] / [id number]
[2017-01-31] MEDS ORDERED: ALBUTEROL SULFATE 8GM INHALER. IH SCH (17:00)
[2017-01-31] MEDS: HYDROCODONE/APAP 5/325MG TABLET. PO PRN (18:00)
[2017-01-31 19:47] VITALS: BP 123/65
[2017-01-31] MEDS: BUDESONIDE 0.5 MG/2 ML NEBU NEB SCH (20:32)
[2017-01-31] MEDS: ATORVASTATIN CALCIUM 20 MG TABLET PO SCH (20:55)
[2017-01-31] MEDS: DIPHENHYDRAMINE HCL 25 MG CAPSULE PO PRN (20:55)
[2017-01-31] MEDS: MONTELUKAST 10 MG TABLET. PO SCH (20:55)
[2017-01-31] MEDS: CEFTRIAXONE SODIUM 1 GM in IV NORMAL SALINE 50ML 50 ML IV SCH (20:56)
[2017-01-31] MEDS ORDERED: MORPHINE ER 30 MG TABLET.ER PO PRN (21:00)
[2017-01-31] MEDS ORDERED: IV NORMAL SALINE 250ML 250 ML ONE (21:04)
[2017-02-01] VITALS: BP 144/57
[2017-02-01] MEDS: HYDROCODONE/APAP 5/325MG TABLET. PO PRN ×3 (00:18→19:45)
[2017-02-01 04:00] VITALS: BP 121/63
[2017-02-01] MEDS: IPRATRPIUM/ALBUTEROL 0.5/2.5MG 3 ML NEBU. NEB SCH ×4 (05:19→20:18)
[2017-02-01] MEDS: ACETAMINOPHEN 500 MG TABLET PO PRN ×2 (05:25→16:27)
[2017-02-01] MEDS: methylPREDNISolone SOD SUCC PF 40 MG/ML VIAL. IV SCH ×3 (05:27→21:41)
[2017-02-01 06:35] LABS: BASO # 0.1 x10^3/uL (0.0-0.2); BASO % 0 % (0-3); EOS % 0 % (0-3); HEMATOCRIT 38.5 % (39.0-53.0); HEMOGLOBIN 12.3 g/dL (13.0-17.5); LYMPH # 2.6 x10^3/uL (1.0-4.8); LYMPH % 11 % (24-48); MEAN CORPUSCULAR HEMOGLOBIN 28 pg (25-35); MEAN CORPUSCULAR HGB CONC 32 g/dL (31-37); MEAN CORPUSCULAR VOLUME 88 fL (79-100); MONO # 1.6 x10^3/uL (0.0-1.1); MONO % 6 % (0-9); NEUT # 20.6 x10^3uL (1.8-7.7); NEUT % 83 % (31-73); PLATELET COUNT 241 x10^3/uL (140-400); RED BLOOD COUNT 4.39 x10^6/uL (4.30-5.70); RED CELL DISTRIBUTION WIDTH 14.7 % (11.5-14.5); WHITE BLOOD COUNT 24.9 x10^3/uL (4.0-11.0)
[2017-02-01 07:11] LABS: ALBUMIN 3.3 g/dL (3.4-5.0); ALBUMIN/GLOBULIN RATIO 0.9 (1.0-1.7); CALCIUM 9.7 mg/dL (8.5-10.1); CREATININE 1.3 mg/dL (0.7-1.3); GFR 58.7; POTASSIUM 4.1 mmol/L (3.5-5.1); TOTAL BILIRUBIN 0.2 mg/dL (0.2-1.0); TOTAL PROTEIN 6.9 g/dL (6.4-8.2)
[2017-02-01 08:00] VITALS: BP 141/65
[2017-02-01] MEDS: AZITHROMYCIN 250 MG TABLET. PO SCH (08:07)
[2017-02-01] MEDS: POTASSIUM CHLORIDE 20 MEQ TABLET.ER. PO SCH (08:07)
[2017-02-01] MEDS: CYANOCOBALAMIN (VITAMIN B-12) 250 MCG TABLET PO SCH (08:07)
[2017-02-01] MEDS: ASPIRIN 81 MG TAB.CHEW PO SCH (08:07)
[2017-02-01] MEDS: MULTIVITAMIN with MINERAL TABLET. PO SCH (08:08)
[2017-02-01 09:29] LABS: % BANDS 10 % (0-9); % BASOS 0 % (0-3); % EOS 0 % (0-5); % LYMPHS 7 % (24-48); % MONOS 3 % (0-10); % SEGS 80 % (35-66); PLT ESTIMATE ADEQUATE (ADEQUATE)
[2017-02-01] MEDS: BUDESONIDE 0.5 MG/2 ML NEBU NEB SCH ×2 (09:45→20:18)
[2017-02-01 12:00] VITALS: BP 144/54
[2017-02-01 14:07] LABS: HCV ANTIBODY <0.1 s/co ratio (0.0-0.9); HEP A IGM ABDY Negative (Negative)
[2017-02-01 16:00] VITALS: BP 144/66
[2017-02-01 20:00] VITALS: BP 161/63
[2017-02-01] MEDS: ATORVASTATIN CALCIUM 20 MG TABLET PO SCH (21:05)
[2017-02-01] MEDS: MONTELUKAST 10 MG TABLET. PO SCH (21:05)
[2017-02-01] MEDS: CEFTRIAXONE SODIUM 1 GM in IV NORMAL SALINE 50ML 50 ML IV SCH (21:06)
[2017-02-02] MEDS: DIPHENHYDRAMINE HCL 25 MG CAPSULE PO PRN (01:28)
[2017-02-02] MEDS: IPRATRPIUM/ALBUTEROL 0.5/2.5MG 3 ML NEBU. NEB SCH ×2 (05:35→11:14)
[2017-02-02] MEDS: methylPREDNISolone SOD SUCC PF 40 MG/ML VIAL. IV SCH (05:37)
[2017-02-02] MEDS: HYDROCODONE/APAP 5/325MG TABLET. PO PRN (05:44)
[2017-02-02 06:48] LABS: BASO % 0 % (0-3); EOS % 0 % (0-3); HEMATOCRIT 40.4 % (39.0-53.0); HEMOGLOBIN 12.9 g/dL (13.0-17.5); LYMPH # 3.4 x10^3/uL (1.0-4.8); LYMPH % 14 % (24-48); MEAN CORPUSCULAR HEMOGLOBIN 28 pg (25-35); MEAN CORPUSCULAR HGB CONC 32 g/dL (31-37); MEAN CORPUSCULAR VOLUME 88 fL (79-100); MONO # 1.3 x10^3/uL (0.0-1.1); MONO % 5 % (0-9); NEUT # 20.5 x10^3uL (1.8-7.7); NEUT % 81 % (31-73); PLATELET COUNT 258 x10^3/uL (140-400); RED BLOOD COUNT 4.62 x10^6/uL (4.30-5.70); RED CELL DISTRIBUTION WIDTH 14.9 % (11.5-14.5); WHITE BLOOD COUNT 25.1 x10^3/uL (4.0-11.0)
[2017-02-02 07:01] LABS: CALCIUM 9.5 mg/dL (8.5-10.1); CREATININE 1.2 mg/dL (0.7-1.3); GFR 64.4; POTASSIUM 4.1 mmol/L (3.5-5.1)
[2017-02-02] MEDS: POTASSIUM CHLORIDE 20 MEQ TABLET.ER. PO SCH (08:13)
[2017-02-02] MEDS: AZITHROMYCIN 250 MG TABLET. PO SCH (08:13)
[2017-02-02] MEDS: BUDESONIDE 0.5 MG/2 ML NEBU NEB SCH (08:14)
[2017-02-02] MEDS: MULTIVITAMIN with MINERAL TABLET. PO SCH (08:14)
[2017-02-02] MEDS: ASPIRIN 81 MG TAB.CHEW PO SCH (08:14)
[2017-02-02] MEDS: CYANOCOBALAMIN (VITAMIN B-12) 250 MCG TABLET PO SCH (08:14)
[2017-02-02] MEDS ORDERED: DOXY100C2 PO (10:41)
[2017-02-02] MEDS ORDERED: PRED5TAB PO (10:41)
--- NOTE | 2017-02-02 15:08 | PN ---
DATE: 02/01/2017 SUBJECTIVE: The patient is sitting on the edge of bed, still complaining of shortness of breath and chest tightness and occasional episodes of cough, although the cough is much better. PHYSICAL EXAMINATION: GENERAL: When I examined him, he looked well and was clearly in no apparent respiratory distress. No pallor, jaundice, cyanosis or thyromegaly. No jugular venous distention. No lower limb edema. VITAL SIGNS: His heart rate was 103, blood pressure was 144/54, temperature was 98, respiratory rate was 26 and oxygen saturation was 94% on 2 liters of oxygen. HEAD, EYES, EARS, NOSE AND THROAT: Showed normocephalic, atraumatic. NECK: Supple. HEART: Showed normal first and second heart sounds with no gallop, rub or murmur. CHEST: Shows central trachea, equally reduced expansion, reduced air entry, vesicular sounds. Very few scattered rhonchi, could not appreciate any crepitation. ABDOMEN: Distended, soft, nontender. No guarding or rigidity. No organomegaly. All hernial orifices intact. Bowel sounds normal. NEUROLOGIC: He was awake, alert, responding appropriately. Cranial nerves intact. He moves extremities without difficulty. His intake over the last 24 hours was 2630, output was 1950. LABORATORY DATA: His lab work this morning showed a white cell count has risen further to 24,900, hemoglobin 12, hematocrit 38, MCV 88, and platelet count 241,000. His chemistry showed a serum sodium 139, potassium 4.1, chloride 103, bicarbonate 30, anion gap of 6, BUN 19, creatinine 1.3, estimated GFR was 58 mL per minute. His glucose was 225. Calcium was 9.7. Total bilirubin, AST, ALT, alkaline phosphatase were normal. His total protein was 6.9, albumin 3.3. ASSESSMENT: 1.Acute bronchitis, morbid obesity, obstructive sleep apnea. 2.Hypertension for which he was on lisinopril that I have discontinued. 3.Non-Hodgkin lymphoma in remission diagnosed in 2011. His last chemotherapy was about 3 years ago. 4.Also known alcoholic steatohepatitis. 5.Generalized osteoarthritis. PLAN: My plan is to continue with the current medications. He is on IV antibiotic in the form of Rocephin and Zithromax. Continue with Flagyl. Continue with methylprednisolone, sodium succinate 40 mg IV q.8 hourly. Continue with nebulized albuterol and Atrovent. I repeat his labs again tomorrow and they add also Singulair 10 mg once a day and Pulmicort 0.5 mg twice a day. The patient will be evaluated again tomorrow. If symptom improves, the patient can be discharged home to continue with oral antibiotics and tapering course of steroids and if his blood pressure continues to be high, he could be switched to losartan or other angiotensin receptor blockers. I am suspecting that some of his cough is probably induced by lisinopril. ELSI TAM MD DR: JAVI/felipe JOB#: [id number] / [id number]
== END 2017-02-02 12:40 | disposition home or self-care (01) | DRG 871 ==
LOC: ER 00:44 → ICU 04:36
PROVIDERS: ADMIT Internal Medicine; ATTEND Internal Medicine
DX: A41.9 Sepsis, unspecified organism (principal); J96.20 Acute and chronic respiratory failure, unspecified whether with hypoxia or hypercapnia; J44.0 Chronic obstructive pulmonary disease with (acute) lower respiratory infection; C85.90 Non-Hodgkin lymphoma, unspecified, unspecified site; Z68.43 Body mass index [BMI] 50.0-59.9, adult; J44.1 Chronic obstructive pulmonary disease with (acute) exacerbation; J20.9 Acute bronchitis, unspecified; E66.01 Morbid (severe) obesity due to excess calories; E87.6 Hypokalemia; G47.33 Obstructive sleep apnea (adult) (pediatric); I10 Essential (primary) hypertension; K70.9 Alcoholic liver disease, unspecified; J45.909 Unspecified asthma, uncomplicated; K76.0 Fatty (change of) liver, not elsewhere classified; M15.9 Polyosteoarthritis, unspecified; F32.9 Major depressive disorder, single episode, unspecified; K64.9 Unspecified hemorrhoids; Z79.899 Other long term (current) drug therapy; Z82.3 Family history of stroke; Z82.49 Family history of ischemic heart disease and other diseases of the circulatory system; Z83.3 Family history of diabetes mellitus; Z79.82 Long term (current) use of aspirin; Z91.048 Other nonmedicinal substance allergy status
CPT/HCPCS: 36415; 71020; 71275; 80048; 80053; 80074; 80076; 81001; 82553; 83690; 83735; 83880; 84443; 84484; 85007; 85027; 85379; 85610; 85730; 87040; 87070; 87205; 87641; 87804; 87880; 93005; 94250; 94640; 96361; 96372; 96374; 96375; G0238; G0481; J0456; J0696; J1200; J2920; J2930; J7050; J7120; J7613; J7620; J7626; Q0163; Q9967; 99285-25

== ENCOUNTER 2017-07-05 15:03 | Emergency (ER) | payer SELFPAY ==
[~2017-07-05] VITALS: Ht 170.2 cm; Wt 163.3 kg
[~2017-07-05 15:03] MED LIST changes: +ALBU18HF IH; +ASPI-630 PO; -ASPI81TA2 PO; +AZIT250T PO; +DOCU-109 PO; -DOCU-27 PO; +DOXY100C2 PO; -HYDR-2666 PO; +HYDR-2758 PO; +PRED50TA PO; +PRED5TAB PO
[2017-07-05 15:20] VITALS: BP 149/99
[2017-07-05] MEDS ORDERED: IOHEXOL 300 MG/ML 75 ML VIAL. IV ONE (15:50)
[2017-07-05 16:05] LABS: BASO # 0.2 x10^3/uL (0.0-0.2); BASO % 2 % (0-3); EOS # 0.2 x10^3/uL (0.0-0.7); EOS % 2 % (0-3); HEMATOCRIT 42.1 % (39.0-53.0); HEMOGLOBIN 13.8 g/dL (13.0-17.5); LYMPH # 2.8 x10^3/uL (1.0-4.8); LYMPH % 21 % (24-48); MEAN CORPUSCULAR HEMOGLOBIN 28 pg (25-35); MEAN CORPUSCULAR HGB CONC 33 g/dL (31-37); MEAN CORPUSCULAR VOLUME 86 fL (79-100); MONO # 1.1 x10^3/uL (0.0-1.1); MONO % 8 % (0-9); NEUT # 9.1 x10^3uL (1.8-7.7); NEUT % 68 % (31-73); PLATELET COUNT 221 x10^3/uL (140-400); RED BLOOD COUNT 4.92 x10^6/uL (4.30-5.70); RED CELL DISTRIBUTION WIDTH 14.1 % (11.5-14.5); WHITE BLOOD COUNT 13.4 x10^3/uL (4.0-11.0)
[2017-07-05 16:10] LABS: BILIRUBIN,URINE NEG (NEG); CLARITY,URINE CLEAR; COLOR,URINE STRAW; GLUCOSE,URINE NEG (NEG); NITRITE,URINE NEG (NEG); UROBILINOGEN,URINE 0.2 mg/dL (0.2 mg/dL)
[2017-07-05 16:11] LABS: BACTERIA,URINE 0 /HPF (0-FEW); RBC,URINE 0 /HPF (0-2); SQUAMOUS EPITHELIAL CELL,UR OCC /LPF; WBC,URINE RARE /HPF (0-4)
[2017-07-05 16:18] LABS: ALBUMIN 3.6 g/dL (3.4-5.0); ALBUMIN/GLOBULIN RATIO 0.9 (1.0-1.7); CALCIUM 9.1 mg/dL (8.5-10.1); CREATININE 1.1 mg/dL (0.7-1.3); GFR 71.1; POTASSIUM 4.2 mmol/L (3.5-5.1); TOTAL BILIRUBIN 0.3 mg/dL (0.2-1.0); TOTAL PROTEIN 7.4 g/dL (6.4-8.2)
--- NOTE | 2017-07-05 16:32 | RAD ---
Indication: Patient with right lower quadrant and flank pain for 2 years with a new sharp pain in this distribution today. Lymphoma 6 years ago treated with chemotherapy. Hypertension. Technique: Axial images and coronal and sagittal reformatted images are provided. There is respiratory motion. 75 mL of intravenous Omnipaque 300 was administered. Comparison is from November 29, 2011. One or more of the following individualized dose reduction techniques were utilized for this examination: 1. Automated exposure control 2. Adjustment of the mA and/or kV according to patient size 3. Use of iterative reconstruction technique Findings: Lung bases are clear. There is pleural fat. There is no pleural effusion. The heart is not enlarged. There is fatty infiltration of an enlarged liver. Gallbladder is contracted. Spleen is not enlarged. Pancreas and adrenals are unremarkable. There are right renal calculi noted measuring up to 3 mm in size, appear to be vascular. There is no obstructing calculus. There are 2 probable cysts in the left kidney up to 25 mm in size, were present on prior exam. Aorta is normal caliber. Lack of oral contrast limits evaluation of bowel. There is no small bowel obstruction or mural thickening. Colon is unremarkable. There is stranding of the mesenteric fat redemonstrated with prominent mesenteric lymph nodes, mesenteric lymph nodes are decreased in size from prior exam. There is no retroperitoneal adenopathy, there are subcentimeter retroperitoneal lymph nodes. Bladder is unremarkable. Prostate calcifications are noted. No pelvic adenopathy is apparent. Bony structures appear intact. Portions of this patient's subcutaneous tissues cannot be included in the [id number]. Impression: 1. No acute abdominal findings. 2. Mesenteric lymph nodes are noted and prominent, although are decreased in size from prior exam. Findings may be secondary to lymphoma. 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 3. Fatty infiltration of an enlarged liver.
--- NOTE | 2017-07-05 17:06 | PHYS DOC ---
Past History Past Medical History: Cancer, Depression, Hypertension, Other Past Surgical History: Other Smoking: Non-smoker Alcohol Use: None Drug Use: None Adult General Chief Complaint Chief Complaint: FLANK PAIN HPI HPI Patient is a 51-year-old male who presents to the ED with the complaint "my side hurts". He has had this before, this is nothing new for him, but stated that this morning at about 9:30 he started having some constant side pain which was similar to what he had before. At 12:30 "it knocked me on the floor". He took a hydrocodone for the pain. It "hasn't settled down" since he took the hydrocodone. 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 Patient has a history of lymphoma, treated with Rituxan, last treatment was 2 and half years ago or more. He states when he first was diagnosed with lymphoma he had "liver pain" which has never gone away. His lymphoma is now considered in remission. He sees his oncologist once a year. His scans have been coming back good. Patient states when he has a bad episode of this pain, a day or 2 later he will see a bruise on his right lateral abdominal wall. He believes this is because "one of my liver cysts ruptures". Patient has had nausea today but no vomiting. No fever or chills. He's had no history of kidney stones. His only abdominal surgery is a umbilical hernia repair. He does have his gallbladder and his appendix. Review of Systems Review of Systems Constitutional: Denies fever or chills [] Respiratory: He has had a little nonproductive cough GI: As in history of present illness : Denies dysuria or hematuria [] Musculoskeletal: Denies back pain or joint pain [] Integument: Denies rash or skin lesions [] Neurologic: Denies headache, focal weakness or sensory changes [] Current Medications Current Medications Current Medications Medications (Trade) Dose Ordered Sig/Perry Start Time Stop Time Status Last Admin Dose Admin Iohexol (Omnipaque 300 Mg/ml) 75 ml 1X ONCE 07/05/17 15:50 07/05/17 15:51 DC 07/05/17 16:08 75 ML Allergies Allergies Allergies Coded Allergies Type Severity Reaction Last Updated Verified cat pelt standardized allergenic ex Allergy Severe Anaphylaxis 07/05/17 Yes Physical Exam Physical Exam Constitutional: Obese male, talkative, no acute distress, non-toxic appearance. [] HENT: Normocephalic, atraumatic, bilateral external ears normal, nose normal. [ ] Eyes: conjunctiva normal, no discharge. [] Neck: Normal range of motion, no stridor. [] Cardiovascular:Heart rate regular rhythm, no murmur [] Lungs & Thorax: Bilateral breath sounds clear to auscultation [] Abdomen: Morbidly obese, Bowel sounds normal, soft, no masses, no pulsatile masses. No abdominal wall discoloration or skin findings. No right upper quadrant or right lower quadrant tenderness to palpation. Somewhat tender to palpation over the lateral mid abdomen on the right. It seems to me more like abdominal wall tenderness than deep intra-abdominal tenderness. No rebound or guarding. Skin: Warm, dry, no erythema, no rash. Chronic appearing skin discoloration of bilateral anterior lower legs, with some chronic-appearing excoriations. Extremities: No tenderness, no cyanosis, no clubbing, ROM intact, no edema. Neurologic: Alert and oriented X 3, normal motor function, normal sensory function, no focal deficits noted. [] Current Patient Data Vital Signs Vital Signs Date Time Temp Pulse Resp B/P (MAP) Pulse Ox O2 Delivery O2 Flow Rate FiO2 07/05/17 15:20 97.4 83 16 98 Room Air Lab Results Laboratory Tests Test 07/05/17 15:35 07/05/17 15:49 Urine Collection Type Unknown Urine Color Straw Urine Clarity Clear Urine pH 6.5 Urine Specific [place] 1.015 Urine Protein Neg (NEG-TRACE) Urine Glucose (UA) Neg mg/dL (NEG) Urine Ketones (Stick) Neg mg/dL (NEG) Urine Blood Neg (NEG) Urine Nitrite Neg (NEG) Urine Bilirubin Neg (NEG) Urine Urobilinogen Dipstick 0.2 mg/dL (0.2 mg/dL) Urine Leukocyte Esterase Neg (NEG) Urine RBC 0 /HPF (0-2) Urine WBC Rare /HPF (0-4) Urine Squamous Epithelial Cells Occ /LPF Urine Bacteria 0 /HPF (0-FEW) White Blood Count 13.4 x10^3/uL (4.0-11.0) H Red Blood Count 4.92 x10^6/uL (4.30-5.70) Hemoglobin 13.8 g/dL (13.0-17.5) Hematocrit 42.1 % (39.0-53.0) Mean Corpuscular Volume 86 fL (79-100) Mean Corpuscular Hemoglobin 28 pg (25-35) Mean Corpuscular Hemoglobin Concent 33 g/dL (31-37) Red Cell Distribution Width 14.1 % (11.5-14.5) Platelet Count 221 x10^3/uL (140-400) Neutrophils (%) (Auto) 68 % (31-73) Lymphocytes (%) (Auto) 21 % (24-48) L Monocytes (%) (Auto) 8 % (0-9) Eosinophils (%) (Auto) 2 % (0-3) Basophils (%) (Auto) 2 % (0-3) Neutrophils # (Auto) 9.1 x10^3uL (1.8-7.7) H Lymphocytes # (Auto) 2.8 x10^3/uL (1.0-4.8) Monocytes # (Auto) 1.1 x10^3/uL (0.0-1.1) Eosinophils # (Auto) 0.2 x10^3/uL (0.0-0.7) Basophils # (Auto) 0.2 x10^3/uL (0.0-0.2) Sodium Level 140 mmol/L (136-145) Potassium Level 4.2 mmol/L (3.5-5.1) Chloride Level 103 mmol/L (98-107) Carbon Dioxide Level 29 mmol/L (21-32) Anion Gap 8 (6-14) Blood Urea Nitrogen 11 mg/dL (8-26) Creatinine 1.1 mg/dL (0.7-1.3) Estimated GFR (Cockcroft-Gault) 71.1 BUN/Creatinine Ratio 10 (6-20) Glucose Level 205 mg/dL (70-99) H Calcium Level 9.1 mg/dL (8.5-10.1) Total Bilirubin 0.3 mg/dL (0.2-1.0) Aspartate Amino Transferase (AST) 66 U/L (15-37) H Alanine Aminotransferase (ALT) 81 U/L (16-63) H Alkaline Phosphatase 106 U/L (46-116) Total Protein 7.4 g/dL (6.4-8.2) Albumin 3.6 g/dL (3.4-5.0) Albumin/Globulin Ratio 0.9 (1.0-1.7) L Lipase 135 U/L (73-393) EKG EKG [] Radiology/Procedures Radiology/Procedures CT scan of the abdomen and pelvis read by the radiologist. No acute findings to explain the patient's pain today. Other findings were reviewed with the patient and I gave him a copy of his report to take to his physicians. [] Course & Med Decision Making Course & Med Decision Making Pertinent Labs and Imaging studies reviewed. (See chart for details) 51-year-old male presents with right mid abdomen pain that has been present to some extent, waxing and waning, off and on, for at least several months. Today he had a more severe episode of the pain. Clinically I'm not sure what the pain is. It does not sound like anything specific, and on exam actually seems more like a abdominal wall location. Labs, CT scan unrevealing. See instructions for plan. [] Dragon Disclaimer Dragon Disclaimer This chart was dictated in whole or in part using Voice Recognition software in a busy, high-work load, and often noisy Emergency Department environment. It may contain unintended and wholly unrecognized errors or omissions. Departure Departure: Impression: Primary Impression: Abdominal pain, chronic, right lower quadrant Additional Impressions: History of lymphoma Abdominal wall pain in right lower quadrant Disposition: 01 HOME, SELF-CARE Condition: STABLE Referrals: GLEN HARDIN DO (PCP) Patient Instructions: Abdominal Pain, [id number] Additional Instructions: As we discussed, tests in the emergency department did not show a cause of your pain. That is reassuring, but also I recommend follow-up with your primary care doctor for more evaluation if your pain persists. Problem Qualifiers ELI LEIJA MD Jul 05, 2017 17:06
== END 2017-07-05 17:16 | disposition home or self-care (01) ==
LOC: ER 15:03
DX: G89.29 Other chronic pain (principal); R10.31 Right lower quadrant pain; I10 Essential (primary) hypertension; F32.9 Major depressive disorder, single episode, unspecified; Z85.72 Personal history of non-Hodgkin lymphomas; Z92.21 Personal history of antineoplastic chemotherapy; Z91.048 Other nonmedicinal substance allergy status
CPT/HCPCS: 36415; 74177; 80053; 81001; 83690; 85025; 99285; Q9967

== ENCOUNTER 2017-10-17 12:55 | Emergency (ER) | payer MEDICARE ==
[~2017-10-17] VITALS: Ht 170.2 cm; Wt 163.3 kg
[~2017-10-17 12:55] MED LIST changes: -NAPR500T3 PO; +NAPR500T4 PO
[2017-10-17 13:00] VITALS: BP 157/84
--- NOTE | 2017-10-17 13:28 | RAD ---
ANKLE RIGHT 3V Clinical Indication: "fell in hole" in, right ankle pain. History of fracture in 1995. Comparison: None. Technique: Frontal, oblique and lateral views of the right ankle are obtained. Findings: Postsurgical changes are seen involving the distal visualized tibia, with an intramedullary liudmila with 2 distal interlocking screws present through the distal diaphysis/metaphysis. No acute fracture is seen. Ankle mortise is maintained. An ossicle is seen distal to the lateral malleolus, suggestive of an os subfibulare. Overlying soft tissues demonstrate no focal abnormality, with diffuse soft tissue edema present. IMPRESSION: No acute osseous injury seen. Postsurgical changes present involving the distal tibia area
[2017-10-17] MEDS ORDERED: HYDR-971 PO (13:35)
--- NOTE | 2017-10-17 13:39 | PHYS DOC ---
Past History Past Medical History: Cancer, COPD, Depression, Hypertension, Other Past Surgical History: Other Smoking: Non-smoker Alcohol Use: None Drug Use: None Adult General Chief Complaint Chief Complaint: ANKLE PROBLEM HPI HPI Patient is a [52] year old [male] who presents with [complaining of right ankle injury and pain.] Patient states he stepped in hole last night and twisted his right ankle and feels pain with bearing weight or walking without other injuries or loss of consciousness. Patient rated his pain 2-3 at rest and and 8 with activity. Patient states he had a leftover hydrocodone and took this morning with improvement of the pain. Patient applied ice and heat on his ankle. Patient states he had a history of fractured distal tibia and fibula with metal placement in his ankle. Patient denies focal neuro deficit and open wound. Review of Systems Review of Systems Constitutional: Denies fever or chills [] Eyes: Denies change in visual acuity, redness, or eye pain [] HENT: Denies nasal congestion or sore throat [] Respiratory: Denies cough or shortness of breath [] Cardiovascular: No additional information not addressed in HPI [] GI: Denies abdominal pain, nausea, vomiting, bloody stools or diarrhea [] : Denies dysuria or hematuria [] Musculoskeletal: Denies back pain , complaining of joint pain Integument: Denies rash or skin lesions [] Neurologic: Denies headache, focal weakness or sensory changes [] Endocrine: Denies polyuria or polydipsia [] All other systems were reviewed and found to be within normal limits, except as documented in this note. Allergies Allergies Allergies Coded Allergies Type Severity Reaction Last Updated Verified cat pelt standardized allergenic ex Allergy Severe Anaphylaxis 07/05/17 Yes Physical Exam Physical Exam Constitutional: Mil distress, non-toxic appearance, morbidly obese. [] HENT: Normocephalic, atraumatic, bilateral external ears normal, oropharynx moist, no oral exudates, nose normal. [] Eyes: PERRLA, EOMI, conjunctiva normal, no discharge. [] Neck: Normal range of motion, no tenderness, supple, no stridor. [] Cardiovascular:Heart rate regular rhythm, no murmur [] Lungs & Thorax: Bilateral breath sounds clear to auscultation [] Abdomen: Bowel sounds normal, soft, no tenderness, no masses, no pulsatile masses. [] Skin: Warm, dry, no erythema, no rash. [] Back: No tenderness, no CVA tenderness. [] Extremities: Right ankle with mild tenderness in medial malleolus without deformity or edema of neurovascular deficit Neurologic: Alert and oriented X 3, normal motor function, normal sensory function, no focal deficits noted. [] Psychologic: Affect normal, judgement normal, mood normal. [] Current Patient Data Vital Signs Vital Signs Date Time Temp Pulse Resp B/P (MAP) Pulse Ox O2 Delivery O2 Flow Rate FiO2 10/17/17 13:00 98.3 68 16 94 Room Air EKG EKG [] Radiology/Procedures Radiology/Procedures [] Course & Med Decision Making Course & Med Decision Making Pertinent imaging studies reviewed without sign of fracture. (See chart for details) Evaluation of patient showed 52-year-old male patient with morbid obesity and injury to right ankle without fracture of deformity or neurovascular deficit.Ilan wrap applied on right ankle because gel cast splint did not fit with his large size of his leg. Dragon Disclaimer Dragon Disclaimer This electronic medical record was generated, in whole or in part, using a voice recognition dictation system. Departure Departure: Impression: Primary Impression: Right ankle sprain Disposition: HOME, SELF-CARE (At 1332) Condition: IMPROVED Referrals: GLEN HARDIN DO (PCP) Patient Instructions: Ankle Sprain Additional Instructions: Apply ice right ankle and elevate your right leg and avoid of bearing weight Follow-up with your physician in 3-5 days Scripts Hydrocodone Bit/Acetaminophen (NORCO 5-325 TABLET) 1 Each Tablet 1 TAB PO TID for 3 Days, #10 TAB Prov: ANTONI PAEZ MD 10/17/17 ANTONI PAEZ MD Oct 17, 2017 13:39
== END 2017-10-17 13:49 | disposition home or self-care (01) ==
LOC: ER 12:55
DX: S93.401A Sprain of unspecified ligament of right ankle, initial encounter (principal); I10 Essential (primary) hypertension; J44.9 Chronic obstructive pulmonary disease, unspecified; F32.9 Major depressive disorder, single episode, unspecified; Z91.048 Other nonmedicinal substance allergy status; X50.9XXA Other and unspecified overexertion or strenuous movements or postures, initial encounter; Y93.89 Activity, other specified; Y99.8 Other external cause status; Y92.89 Other specified places as the place of occurrence of the external cause
CPT/HCPCS: 73610; 99284

== ENCOUNTER 2017-12-12 07:28 | Emergency (ER) | payer MEDICARE ==
[~2017-12-12] VITALS: Ht 170.2 cm; Wt 153.3 kg
[~2017-12-12 07:28] MED LIST changes: +HYDR-971 PO
--- NOTE | 2017-12-12 08:14 | RAD ---
Indication: Cough and short of breath for 3 weeks. Technique: Two-view chest radiograph was obtained. Comparison is from January 31, 2017. Findings: The lungs are clear. The heart is not enlarged. Pulmonary vasculature appears mildly cephalized. There is no pleural effusion. Port is noted. Bony structures are intact. Impression: Mild vascular congestion suspected.
[2017-12-12] MEDS ORDERED: methylPREDNISolone SOD SUCC PF 125 MG/2 ML VIAL. IV ONE (08:15)
[2017-12-12] MEDS ORDERED: IPRATRPIUM/ALBUTEROL 0.5/2.5MG 3 ML NEBU. NEB ONE (08:15)
--- NOTE | 2017-12-12 08:29 | PHYS DOC ---
Past History Past Medical History: Cancer, COPD, Depression, Diabetes, Hypertension, Other Past Surgical History: Other Smoking: Non-smoker Alcohol Use: None Drug Use: None Adult General Chief Complaint Chief Complaint: COUGH HPI HPI 52-year-old nonsmoking male patient with history of non-Hodgkin lymphoma in remission complaining of productive cough with yellow sputum for the last 3 weeks with subjective fever and chills, nasal congestion, sore throat, generalized myalgia and pain in his chest during episodes of cough.. Patient states he was started on amoxicillin 3 days ago by his primary care physician but this morning had strings of bright red blood in his sputum patient states he has had chronic shortness of breath without new change for the last 3 weeks. Review of Systems Review of Systems Constitutional: Reports subjective fever and chills Eyes: Denies change in visual acuity, redness, or eye pain [] HENT: Reports sore throat and nasal congestion Respiratory: Reports cough and shortness of breath[] Cardiovascular: No additional information not addressed in HPI [] GI: Denies abdominal pain, bloody stools or diarrhea reports nausea and posttussive vomiting[] : Denies dysuria or hematuria [] Musculoskeletal: Denies back pain or joint pain [] Integument: Denies rash or skin lesions [] Neurologic: Denies headache, focal weakness or sensory changes [] Endocrine: Denies polyuria or polydipsia [] All other systems were reviewed and found to be within normal limits, except as documented in this note. Current Medications Current Medications Current Medications Medications (Trade) Dose Ordered Sig/Perry Start Time Stop Time Status Last Admin Dose Admin Albuterol/ Ipratropium (Duoneb) 3 ml 1X ONCE 12/12/17 08:15 12/12/17 08:16 DC Methylprednisolone Sodium Succinate (SOLU-Medrol 125MG VIAL) 125 mg 1X ONCE 12/12/17 08:15 12/12/17 08:16 DC Allergies Allergies Allergies Coded Allergies Type Severity Reaction Last Updated Verified cat pelt standardized allergenic ex Allergy Severe Anaphylaxis 07/05/17 Yes Physical Exam Physical Exam Constitutional: Well nourished, mild distress, non-toxic appearance, morbidly obese HENT: Normocephalic, atraumatic, bilateral external ears normal, oropharynx moist, no oral exudates, nose normal. [] Eyes: PERRLA, EOMI, conjunctiva normal, no discharge. [] Neck: Normal range of motion, no tenderness, supple, no stridor. [] Cardiovascular:Heart rate regular rhythm, no murmur [] Lungs & Thorax: Decrease of air movement Abdomen: Bowel sounds normal, soft, no tenderness, no masses, no pulsatile masses. [] Skin: Warm, dry, no erythema, no rash. [] Back: No tenderness, no CVA tenderness. [] Extremities: No tenderness, no cyanosis, no clubbing, ROM intact, no edema. [] Neurologic: Alert and oriented X 3, normal motor function, normal sensory function, no focal deficits noted. [] Psychologic: Affect normal, judgement normal, mood normal. [] EKG EKG [] Radiology/Procedures Radiology/Procedures [] Course & Med Decision Making Course & Med Decision Making Pertinent Labs and Imaging studies reviewed. (See chart for details) Evaluation of patient in ER showed 52-year-old male patient with complaining of cough for 3 weeks and hemoptysis today. Patient is currently taking amoxicillin and cough medication and nebulizer treatment. Patient had unremarkable physical exam except for morbid obesity. Chest x-ray showed possible mild CHF but BNP was normal. Labs was unremarkable except for white count of 11.2. She and treated with DuoNeb and Solu-Medrol in ER and felt better. Patient instructed to continue home medication and prescription for Medrol Dosepak was given. Patient had blood pressure of 199 at arrival to ER that gradually decreased to 161/98. Patient psychiatric to continue her outpatient medication and follow with his physician in 3-5 days. Dragon Disclaimer Dragon Disclaimer This electronic medical record was generated, in whole or in part, using a voice recognition dictation system. Departure Departure: Impression: Primary Impression: Acute bronchitis Additional Impressions: Hemoptysis Uncontrolled hypertension Disposition: HOME, SELF-CARE (at 0932) Condition: IMPROVED Referrals: GLEN HARDIN DO (PCP) Patient Instructions: Acute Bronchitis Additional Instructions: Continue current home medication Follow-up with your primary care physician in 3-5 days Return to ER if not feeling better Scripts Methylprednisolone (MEDROL) 4 Mg Tab.ds.pk 1 PKG PO UD, #1 PKG Prov: ANTONI PAEZ MD 12/12/17 Problem Qualifiers ANTONI PAEZ MD Dec 12, 2017 08:28
[2017-12-12 08:36] LABS: INFLUENZA A PATIENT NEGATIVE (NEGATIVE); INFLUENZA B PATIENT NEGATIVE (NEGATIVE)
[2017-12-12 08:55] LABS: BASO # 0.1 x10^3/uL (0.0-0.2); BASO % 1 % (0-3); EOS # 0.2 x10^3/uL (0.0-0.7); EOS % 2 % (0-3); HEMATOCRIT 43.3 % (39.0-53.0); HEMOGLOBIN 14.3 g/dL (13.0-17.5); LYMPH # 3.6 x10^3/uL (1.0-4.8); LYMPH % 32 % (24-48); MEAN CORPUSCULAR HEMOGLOBIN 28 pg (25-35); MEAN CORPUSCULAR HGB CONC 33 g/dL (31-37); MEAN CORPUSCULAR VOLUME 85 fL (79-100); MONO # 1.2 x10^3/uL (0.0-1.1); MONO % 11 % (0-9); NEUT % 54 % (31-73); PLATELET COUNT 231 x10^3/uL (140-400); RED BLOOD COUNT 5.08 x10^6/uL (4.30-5.70); RED CELL DISTRIBUTION WIDTH 14.3 % (11.5-14.5); WHITE BLOOD COUNT 11.2 x10^3/uL (4.0-11.0)
[2017-12-12 09:16] LABS: ALBUMIN 3.6 g/dL (3.4-5.0); CALCIUM 9.5 mg/dL (8.5-10.1); CREATININE 1.1 mg/dL (0.7-1.3); GFR 70.9; POTASSIUM 3.9 mmol/L (3.5-5.1); TOTAL BILIRUBIN 0.4 mg/dL (0.2-1.0); TOTAL PROTEIN 7.1 g/dL (6.4-8.2)
[2017-12-12 09:20] VITALS: BP 161/98
[2017-12-12] MEDS ORDERED: METH4TAB2 PO (09:34)
== END 2017-12-12 09:50 | disposition home or self-care (01) ==
LOC: ER 07:28
DX: J20.9 Acute bronchitis, unspecified (principal); R04.2 Hemoptysis; I10 Essential (primary) hypertension; E11.9 Type 2 diabetes mellitus without complications; J44.9 Chronic obstructive pulmonary disease, unspecified; Z85.72 Personal history of non-Hodgkin lymphomas; Z91.048 Other nonmedicinal substance allergy status
CPT/HCPCS: 36415; 71046; 80053; 83605; 83880; 85025; 87804; 94640; 96374; 99285; J2930; J7620

== ENCOUNTER 2017-12-15 21:02 | Emergency (ER) | payer MEDICARE ==
[~2017-12-15] VITALS: Ht 170.2 cm; Wt 153.3 kg
[~2017-12-15 21:02] MED LIST changes: +METH4TAB2 PO
[2017-12-15] MEDS ORDERED: LORazepam 1 MG TABLET PO ONE (22:00)
[2017-12-15] MEDS ORDERED: methylPREDNISolone SOD SUCC PF 125 MG/2 ML VIAL. IM ONE (22:00)
--- NOTE | 2017-12-15 22:43 | PHYS DOC ---
Past History Past Medical History: Cancer, COPD, Depression, Diabetes, Hypertension, Other Past Surgical History: Tonsillectomy, Other Smoking: Non-smoker Alcohol Use: None Drug Use: None Adult General Chief Complaint Chief Complaint: SHORTNESS OF BREATH HPI HPI 52-year-old male patient with multiple medical problems was seen in this emergency room couple days ago evaluation and diagnose of bronchitis and discharged home with antibiotic and steroid and cough medication. Patient states his condition improved but today he had increasing of shortness of breath as and hurting all over without fever and chills. Patient states he took his home nebulizer and inhaler prior to arrival to ER and feels better. Patient had hyperventilation at arrival to ER. Review of Systems Review of Systems Constitutional: Denies fever or chills [] Eyes: Denies change in visual acuity, redness, or eye pain [] HENT: Denies nasal congestion or sore throat [] Respiratory: Reports cough and shortness of breath[] Cardiovascular: No additional information not addressed in HPI [] GI: Denies abdominal pain, nausea, vomiting, bloody stools or diarrhea [] : Denies dysuria or hematuria [] Musculoskeletal: Denies back pain or joint pain [, reports muscle pain] Integument: Denies rash or skin lesions [] Neurologic: Denies headache, focal weakness or sensory changes [] Endocrine: Denies polyuria or polydipsia [] All other systems were reviewed and found to be within normal limits, except as documented in this note. Current Medications Current Medications Current Medications Medications (Trade) Dose Ordered Sig/Perry Start Time Stop Time Status Last Admin Dose Admin Lorazepam (Ativan) 1 mg 1X ONCE 12/15/17 22:00 12/15/17 22:03 DC 12/15/17 22:41 1 MG Methylprednisolone Sodium Succinate (SOLU-Medrol 125MG VIAL) 125 mg 1X ONCE 12/15/17 22:00 12/15/17 22:03 DC 12/15/17 22:41 125 MG Allergies Allergies Allergies Coded Allergies Type Severity Reaction Last Updated Verified cat pelt standardized allergenic ex Allergy Severe Anaphylaxis 07/05/17 Yes Physical Exam Physical Exam Constitutional: Well nourished, mild distress, anxious, morbidly obese, non- toxic appearance, hyperventilating. [] HENT: Normocephalic, atraumatic, bilateral external ears normal, oropharynx moist, no oral exudates, nose normal. [] Eyes: PERRLA, EOMI, conjunctiva normal, no discharge. [] Neck: Normal range of motion, no tenderness, supple, no stridor. [] Cardiovascular:Heart rate regular rhythm, no murmur [] Lungs & Thorax: Bilateral breath sounds clear to auscultation [] Abdomen: Bowel sounds normal, soft, no tenderness, no masses, no pulsatile masses. [] Skin: Warm, dry, no erythema, no rash. [] Back: No tenderness, no CVA tenderness. [] Extremities: No tenderness, no cyanosis, no clubbing, ROM intact, no edema. [] Neurologic: Alert and oriented X 3, normal motor function, normal sensory function, no focal deficits noted. [] EKG EKG [] Radiology/Procedures Radiology/Procedures Chest x-ray interpreted by me and did not show acute finding[] Course & Med Decision Making Course & Med Decision Making Pertinent Imaging studies reviewed. (See chart for details) Evaluation of patient in ER showed 52-year-old male patient with history of frequent emergency room visits presented to ER because of shortness of breath that started this afternoon. Patient had recent emergency room visit acute abnormality and discharged home with diagnose of bronchitis. Patient had hyperventilation at arrival to ER and after Ativan and rest his condition improved. Patient psychiatric to continue home medication and follow-up with his primary care physician. Patient ambulated without problem or hypoxia or shortness of breath. Dragon Disclaimer Dragon Disclaimer This electronic medical record was generated, in whole or in part, using a voice recognition dictation system. Departure Departure: Impression: Primary Impression: Bronchitis Additional Impression: Dyspnea Disposition: 01 HOME, SELF-CARE (At 2245) Condition: IMPROVED Referrals: GLEN HARDIN DO (PCP) Patient Instructions: Acute Bronchitis Additional Instructions: Drink plenty of liquids Follow-up with your primary care physician in 3-5 days Return to ER if not getting better Continue current home medication Problem Qualifiers ANTONI PAEZ MD Dec 15, 2017 22:43
[2017-12-15] MEDS ORDERED: ORPHENADRINE CITRATE 60 MG/2 ML VIAL. IV ONE (22:45)
[2017-12-15 23:19] VITALS: BP 127/57
--- NOTE | 2017-12-16 07:49 | RAD ---
Chest, 2 views, 12/15/2017: History: Shortness of breath, cough Comparison is made to a study from 12/12/2017. A right Port-A-Cath extends into the inferior aspect of the superior vena cava. Widening of the superior mediastinum has been shown to be due to abundant mediastinal fat. The heart is within normal limits in size. The pulmonary vascularity is at the upper limits of normal. No pulmonary infiltrate is seen. Chronic pleural thickening inferolaterally on both sides is due to subpleural fat accumulations. IMPRESSION: 1. No acute infiltrates. 2. No significant change since 12/12/2017.
== END 2017-12-15 23:19 | disposition home or self-care (01) ==
LOC: ER 21:02
DX: J40 Bronchitis, not specified as acute or chronic (principal); E11.9 Type 2 diabetes mellitus without complications; I10 Essential (primary) hypertension; J44.9 Chronic obstructive pulmonary disease, unspecified; Z91.048 Other nonmedicinal substance allergy status
CPT/HCPCS: 71046; 96372; 99284; J2930

== ENCOUNTER 2021-01-14 14:41 | Emergency (ER) | payer MEDICARE ==
[~2021-01-14] VITALS: Ht 170.2 cm; Wt 160.2 kg
[~2021-01-14 14:41] MED LIST changes: -ALBU18HF IH; +ALBU2.5V8 IH; -CYAN500T PO; +CYAN500T7 PO; +HYDR-2155 PO; -HYDR-2758 PO; +HYDR-3165 PO; -HYDR-971 PO; +LISI10TA16 PO; -LISI10TA2 PO; +NAPR-514 PO; -NAPR500T4 PO
[2021-01-14] MEDS ORDERED: IOHEXOL 300 MG/ML 75 ML VIAL. IV ONE (15:15)
[2021-01-14 15:32] LABS: BASO # 0.1 x10^3/uL (0.0-0.2); BASO % 1 % (0-3); EOS # 0.2 x10^3/uL (0.0-0.7); EOS % 2 % (0-3); HEMATOCRIT 43.4 % (39.0-53.0); HEMOGLOBIN 13.9 g/dL (13.0-17.5); LYMPH % 29 % (24-48); MEAN CORPUSCULAR HEMOGLOBIN 28 pg (25-35); MEAN CORPUSCULAR HGB CONC 32 g/dL (31-37); MEAN CORPUSCULAR VOLUME 87 fL (79-100); MONO % 10 % (0-9); NEUT # 6.1 x10^3uL (1.8-7.7); NEUT % 59 % (31-73); PLATELET COUNT 223 x10^3/uL (140-400); RED CELL DISTRIBUTION WIDTH 14.5 % (11.5-14.5); WHITE BLOOD COUNT 10.4 x10^3/uL (4.0-11.0)
--- NOTE | 2021-01-14 15:33 | PHYS DOC ---
Past History Past Medical History: Cancer, COPD, Depression, Diabetes, Hypertension, Other Past Surgical History: Tonsillectomy, Other Smoking: Non-smoker Alcohol Use: None Drug Use: None General Adult EDM: Chief Complaint: FLANK PAIN HPI: HPI: Patient is a 55-year-old male coming in by private vehicle for evaluation of right flank pain. Patient states the pain is sharp and radiates from his right lower thoracic back down to his groin. Denies any left-sided pain. Pain is worse with movement. It started when he was sitting. Patient is concerned because he is a history of non-Hodgkin's lymphoma in remission said he had similar pains during that illness. Says he has polyuria and polydipsia, has a history of type 2 diabetes. Denies any hematuria, history of kidney stones, testicular pain, dysuria. Patient states he has lost weight recently. Denies any fevers, cough, vomiting, diarrhea or constipation. Has a history of an umbilical hernia mesh repair and a bilateral inguinal hernia repair when he was young. Review of Systems: Review of Systems: All other systems within normal limits except for as noted in the HPI Current Medications: Current Meds: Current Medications Medications (Trade) Dose Ordered Sig/Perry Start Time Stop Time Status Last Admin Dose Admin Iohexol (Omnipaque 300 Mg/ml) 75 ml 1X ONCE 01/14/21 15:15 01/14/21 15:17 DC 01/14/21 15:28 75 ML Allergies: Allergies: Allergies Coded Allergies Type Severity Reaction Last Updated Verified cat pelt standardized allergenic ex Allergy Severe Anaphylaxis 07/05/17 Yes Physical Exam: PE: Constitutional: Well developed, well nourished, no acute distress, non-toxic appearance. [] HENT: Normocephalic, atraumatic, bilateral external ears normal, nose normal. [] Eyes: PERRLA, conjunctiva normal, no discharge. [] Neck: No rigidity, supple, no stridor. [] Cardiovascular: Regular rate and rhythm, brisk cap refill [] Lungs & Thorax: Non labored symmetric respirations, no tachypnea or respiratory distress [] Abdomen: Soft, nondistended, right upper and lower tenderness, no guarding or rebound. Exam limited by body habitus Back: No spine tenderness, step-off or deformities, right CVA tenderness. Extremities: No deformities, range of motion grossly intact, no lower extremity edema [] Neurologic: Alert and oriented X 3, no focal deficits noted. [] Psychologic: Affect normal, judgement normal, mood normal. [] EKG: EKG: [] Radiology/Procedures: Radiology/Procedures: EXAMINATION: CT ABDOMEN+PELVIS W (CT ABDOMEN/PELVIS WITH IV CONTRAST) CLINICAL HISTORY: Right abd pain TECHNIQUE: CT of the abdomen and pelvis was performed using standard technique, scanning from just above the dome of the diaphragm to the symphysis pubis fol lowing administration of intravenous contrast. CT Dose Reduction Employed: One or more of the following individualized dose reduction techniques were utilized for this examination: 1. Automated exposure control 2. Adjustment of the mA and/or kV according to patient size 3. Use of iterative reconstruction technique. COMPARISON: 03/05/2017 FINDINGS: Partially visualized heart and lungs unremarkable. Liver, gallbladder, pancreas, spleen, and adrenal glands unremarkable. 6 mm nonobstructive calculus in the midpole the right kidney. 2 cysts again noted in the upper pole the left kidney measuring up to 2.8 cm. No additional ur inary calculi definitively visualized. No evidence of obstructive uropathy. Mildly filled urinary bladder. Small calcification again noted in the left paramedian prostate. Additional prostatic calcification not visualized on this exam, though the prostate is incompletely imaged on this exam. No bowel dilation or definite wall thickening. Normal appendix. Redemonstration of relatively ill-defined hazy mesenteric soft tissue attenuation with multifocal soft tissue nodularity, essentially unchanged from prior study. No new basilar logical enlarged lymph nodes. No abdominal aortic or iliac artery aneurysm. Mild thoracolumbar degenerative changes. IMPRESSION: No evidence of acute abdominopelvic abnormality or significant interval change. Nonobstructive right renal calculus. No evidence of obstructive uropathy. 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 Risk Scores: Score 0 - 3: 2.5% MACE over next 6 weeks - Discharge Home Score 4 - 6: 20.3% MACE over next 6 weeks - Admit for Clinical Observation Score 7 - 10: 72.7% MACE over next 6 weeks - Early Invasive Strategies Course & Med Decision Making: Course & Med Decision Making Pertinent Labs and Imaging studies reviewed. (See chart for details) Work-up remarkable. Discussed elevated glucose levels and renal kidney stones. Discussed likely musculoskeletal cause the pain and return precautions. [] Kryson Disclaimer: Nancy Disclaimer: This electronic medical record was generated, in whole or in part, using a voice recognition dictation system. Departure Departure: Impression: Primary Impression: Right flank pain Additional Impression: Glucosuria Disposition: 01 DC HOME SELF CARE/HOMELESS Referrals: GLEN HARDIN DO (PCP) Patient Instructions: Flank Pain MARCO JANSEN MD Jan 14, 2021 15:33
[2021-01-14 15:47] LABS: CALCIUM 8.9 mg/dL (8.5-10.1); CREATININE 0.9 mg/dL (0.7-1.3); GFR 88.3; POTASSIUM 4.2 mmol/L (3.5-5.1)
[2021-01-14 15:53] LABS: ALBUMIN 3.5 g/dL (3.4-5.0); ALBUMIN/GLOBULIN RATIO 0.9 (1.0-1.7); TOTAL BILIRUBIN 0.3 mg/dL (0.2-1.0); TOTAL PROTEIN 7.3 g/dL (6.4-8.2)
--- NOTE | 2021-01-14 15:59 | RAD ---
EXAMINATION: CT ABDOMEN+PELVIS W (CT ABDOMEN/PELVIS WITH IV CONTRAST) CLINICAL HISTORY: Right abd pain TECHNIQUE: CT of the abdomen and pelvis was performed using standard technique, scanning from just ab ove the dome of the diaphragm to the symphysis pubis following administration of intravenous contrast . CT Dose Reduction Employed: One or more of the following individualized dose reduction techniques wer e utilized for this examination: 1. Automated exposure control 2. Adjustment of the mA and/or kV ac cording to patient size 3. Use of iterative reconstruction technique. COMPARISON: 03/05/2017 FINDINGS: Partially visualized heart and lungs unremarkable. Liver, gallbladder, pancreas, spleen, and adrenal glands unremarkable. 6 mm nonobstructive calculus in the midpole the right kidney. 2 cysts again noted in the upper pole t he left kidney measuring up to 2.8 cm. No additional urinary calculi definitively visualized. No evid ence of obstructive uropathy. Mildly filled urinary bladder. Small calcification again noted in the left paramedian prostate. Addit ional prostatic calcification not visualized on this exam, though the prostate is incompletely imaged on this exam. No bowel dilation or definite wall thickening. Normal appendix. Redemonstration of relatively ill-defined hazy mesenteric soft tissue attenuation with multifocal sof t tissue nodularity, essentially unchanged from prior study. No new basilar logical enlarged lymph no pino. No abdominal aortic or iliac artery aneurysm. Mild thoracolumbar degenerative changes. IMPRESSION: No evidence of acute abdominopelvic abnormality or significant interval change. Nonobstructive right renal calculus. No evidence of obstructive uropathy. 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 Electronically signed by: Saul Reynolds DO (01/14/2021 3:56 PM) [id number]
[2021-01-14 16:40] LABS: BILIRUBIN,URINE NEG (NEG); CLARITY,URINE CLEAR; COLOR,URINE YELLOW; GLUCOSE,URINE >=1000 mg/dL (NEG)
[2021-01-14 16:41] LABS: BACTERIA,URINE 0 /HPF (0-FEW); NITRITE,URINE NEG (NEG); RBC,URINE 0 /HPF (0-2); SQUAMOUS EPITHELIAL CELL,UR OCC /LPF; UROBILINOGEN,URINE 0.2 mg/dL (0.2 mg/dL); WBC,URINE 0 /HPF (0-4)
[2021-01-14] MEDS ORDERED: ONDANSETRON ODT 4 MG TAB.RAPDIS PO ONE (17:00)
[2021-01-14] MEDS ORDERED: ONDANSETRON ODT 4 MG TAB.RAPDIS ONE (17:01)
[2021-01-14 17:05] VITALS: BP 171/80
== END 2021-01-14 17:10 | disposition home or self-care (01) ==
LOC: ER 14:41
DX: R10.31 Right lower quadrant pain (principal); R81 Glycosuria; M54.6 Pain in thoracic spine; J44.9 Chronic obstructive pulmonary disease, unspecified; E11.9 Type 2 diabetes mellitus without complications; I10 Essential (primary) hypertension; Z88.8 Allergy status to other drugs, medicaments and biological substances
CPT/HCPCS: 36415; 74177; 80053; 81001; 83690; 85025; 99285; Q0162; Q9967

== ENCOUNTER → 2021-02-20 | Outpatient (CLI) | payer MEDICARE, OTHER ==
--- NOTE | 2021-02-20 15:23 | RAD ---
EXAMINATION: US DPLX VENOUS EXTREMITY UPPER RT (UPPER EXTREMITY VENOUS ULTRASOUND) CLINICAL HISTORY: Right arm pain and swelling TECHNIQUE: Sonographic grayscale images obtained of the right upper extremity deep venous system with color flow Doppler, compression, and augmentation techniques as indicated. Images obtained and stor ed in a permanent archive. COMPARISON: None FINDINGS: Incidentally noted duplicated brachial artery, each with paired brachial veins. No evidence of absent flow or incompressibility within the internal jugular, subclavian, axillary, an d brachial veins. Visualized radial and ulnar veins appear patent on limited evaluation. No evidence of absent flow or incompressibility within the superficial basilic and cephalic veins. IMPRESSION: No evidence of right upper extremity DVT. Electronically signed by: Saul Reynolds DO (02/20/2021 3:21 PM) [id number]
== END ==
LOC: US 14:41
PROVIDERS: ATTEND Internal Medicine
DX: M79.621 Pain in right upper arm (principal)
CPT/HCPCS: 93971

== ENCOUNTER 2021-05-23 10:48 | Emergency (ER) | payer MEDICARE, OTHER ==
[~2021-05-23] VITALS: Ht 170.2 cm; Wt 163.4 kg
--- NOTE | 2021-05-23 11:31 | PHYS DOC ---
Past History Past Medical History: Cancer, COPD, Depression, Diabetes, Hypertension Additional Past Medical Histor: non-hodgkins Past Surgical History: Tonsillectomy, Other Additional Past Surgical Histo: groin hernia; liudmila in right leg; port placed and removed right chest Smoking: Non-smoker Alcohol Use: None Drug Use: None General Adult EDM: Chief Complaint: SHORTNESS OF BREATH HPI: HPI: 55-year-old male presents with shortness of breath. He went to urgent care earlier this morning and they tested him for COVID-19. It is positive. For the last 2 days he has felt short of breath and had increased fatigue. He has COPD at baseline for which he takes a couple different breathing treatments. He has been using these but still feels short of breath. He got a single dose vacc ination of Materna, but never went back for his second vaccine. He is unsure if he has had a fever. Review of Systems: Review of Systems: Constitutional: Fatigue. Denies chills. Eyes: Denies change in visual acuity HENT: Denies nasal congestion or sore throat Respiratory: shortness of breath Cardiovascular: Denies chest pain or edema GI: Denies abdominal pain, nausea, vomiting, bloody stools or diarrhea : Denies dysuria Musculoskeletal: Denies back pain or joint pain Integument: Denies rash Neurologic: Denies headache, focal weakness or sensory changes Endocrine: Denies polyuria or polydipsia Lymphatic: Denies swollen glands Psychiatric: Denies depression or anxiety Allergies: Allergies: Allergies Coded Allergies Type Severity Reaction Last Updated Verified cat dander Allergy Unknown 05/23/21 Yes ibuprofen Allergy Unknown Itching 05/23/21 Yes Physical Exam: PE: Constitutional: Well developed, well nourished, morbidly obese, mild acute distress, non-toxic appearance. [] HENT: Normocephalic, atraumatic, bilateral external ears normal, oropharynx moist, no oral exudates, nose normal. [] Eyes: PERRLA, EOMI, conjunctiva normal, no discharge. [] Neck: Normal range of motion, no tenderness, supple, no stridor. [] Cardiovascular: Heart rate regular rhythm, no murmur [] Lungs & Thorax: Bilateral breath sounds decreased but clear to auscultation [] Abdomen: Bowel sounds normal, soft, no tenderness, no masses, no pulsatile masses. [] Skin: Warm, dry, no erythema, no rash. [] Back: No tenderness, no CVA tenderness. [] Extremities: No tenderness, no cyanosis, no clubbing, ROM intact, no edema. [] Neurologic: Alert and oriented X 3, normal motor function, normal sensory function, no focal deficits noted. [] Psychologic: Affect normal, judgement normal, mood normal. [] Current Patient Data: Vital Signs: Vital Signs Date Time Temp Pulse Resp B/P (MAP) Pulse Ox O2 Delivery O2 Flow Rate FiO2 05/23/21 11:04 100.2 92 31 162/82 94 Room Air EKG: EKG: Sinus rhythm, rate 94, leftward axis, no ST elevation or depression. [] Radiology/Procedures: Radiology/Procedures: [] Impressions: INDICATION: Reason: SHORT OF BREATH, COVID POSITIVE / Spl. Instructions: / History: COMPARISON: November 2017 FINDINGS: Single view of chest obtained. Enlarged cardiomediastinal silhouette. Mild interstitial and groundglass opacities are suspected bilaterally. No gross osseous destructive lesion. IMPRESSION: * Mild interstitial and groundglass opacities are suspected bilaterally. Could be secondary to mild pulmonary vascular congestion or interstitial infiltrate. Electronically signed by: Raina Clark MD (05/23/2021 11:47 AM) [id number] DICTATED AND SIGNED BY: RAINA CLARK MD DATE: 05/23/21 1145 CC: PATY PRASAD DO; GLEN HARDIN DO ~MTH0 0 Heart Score: C/O Chest Pain: N/A Risk Factors: Risk Factors: DM, Current or recent (<one month) smoker, HTN, HLP, family history of CAD, obesity. Risk Scores: Score 0 - 3: 2.5% MACE over next 6 weeks - Discharge Home Score 4 - 6: 20.3% MACE over next 6 weeks - Admit for Clinical Observation Score 7 - 10: 72.7% MACE over next 6 weeks - Early Invasive Strategies Course & Med Decision Making: Course & Med Decision Making Pertinent Labs and Imaging studies reviewed. (See chart for details) The patient CBC is unremarkable except for mild anemia. The rest of his labs are unremarkable. Chest x-ray shows findings consistent with COVID-19. Patient has been maintaining his oxygen saturation throughout his stay in the ED without supplemental oxygen. It is possible that the patient's condition will worsen, but he does not meet admission criteria at this time. He is stable for discharge. [] Dragon Disclaimer: Dragon Disclaimer: This electronic medical record was generated, in whole or in part, using a voice recognition dictation system. Departure Departure: Impression: Primary Impression: COVID-19 Disposition: HOME / SELF CARE / HOMELESS Condition: STABLE Referrals: GLEN HARDIN DO (PCP) Additional Instructions: You have been tested for or diagnosed with COVID-19. It is an infection caused by a new type of coronavirus. COVID-19 will cause cold-like or mild flu symptoms in most. It can cause more severe symptoms like problems breathing in some. There is no treatment for COVID-19. The body will clear the infection over time. Self-care will help to ease discomfort. Steps to Take: Self-Care Rest as needed. Healthy habits may help you feel better. Steps include: Choose healthy foods including fruits and vegetables. Drink water throughout the day. Get plenty of sleep each night. If you smoke, try to quit. It may ease breathing. Avoid alcohol. Keep Others Healthy The virus can spread to others. Droplets are released every time you sneeze or cough. The droplets can get into the mouth, nose, or eyes of people near you and lead to infection. To lower the chances of spreading COVID-19 to others: Stay at home until your doctor has said it is safe to leave. If you tested positive this will mean staying isolated until both of the following are true: At least 7 days have passed since the start of illness. You are free of fever for at least 72 hours without the use of medicine. During this time: - Avoid public areas, events, or transportation. Do not return to work or school until your doctor has said it is safe to do so. - Call ahead if you need to go to a medical center. Let them know you may have COVID-19. It will help them guide you where to go. They may also ask you to wear a facemask when you come to the office. - If you call for emergency medical services, let them know you may have COVID- 19. While at home: - Try to avoid close contact with others. Stay about 6 feet away. - If possible, spend most of your time in a separate room from others. - Use a face mask if you will be in close contact with others such as sharing a room or vehicle. - Have someone wipe down common surfaces in the home. Use household shoddy mill worker every day on areas like doorknobs, counters, or sinks. - Cough or sneeze into a tissue. Throw the tissue away right after use. If a tissue is not available, cough or sneeze into your elbow. - Wash your hands often. Wash them after sneezing or coughing. Use soap and water and wash for at least 20 seconds. Alcohol based hand bobbin cleaner can be used if soap and water is not available. - Do not prepare food for others. Avoid sharing personal items like forks, spoons, or toothbrushes. - Avoid close contact with pets while you are sick. There is no evidence of the virus passing to pets. This is a safety step until more is known about this virus. Isolation can be frustrating. Social interaction can help. Keep in touch with friends and family through phone and tech options. You can still interact with others in your home, just keep a safe distance of about 6 feet. Follow-up: Your doctors office will check in with you to see if there are any changes in your health. You may be asked to keep track of symptoms to share with them. They will also let you know when you are clear to be in public again. Problems to Look Out For: Contact your doctor if your recovery is not going as you expect. Get emergency care if you have problems such as: - Trouble breathing - Nonstop chest pain or pressure - Changes in awareness, confusion, or problems waking - Lips or face have bluish color - Worsening of symptoms If you think you have an emergency, call for emergency medical services right away. As taken from [facility] PATY PRASAD DO May 23, 2021 11:31
[2021-05-23] MEDS ORDERED: IV NORMAL SALINE 1,000ML 1,000 ML IV ONE (11:45)
[2021-05-23 11:48] LABS: BASO # 0.1 x10^3/uL (0.0-0.2); BASO % 1 % (0-3); EOS # 0.1 x10^3/uL (0.0-0.7); EOS % 1 % (0-3); HEMATOCRIT 38.2 % (39.0-53.0); HEMOGLOBIN 12.4 g/dL (13.0-17.5); LYMPH # 1.3 x10^3/uL (1.0-4.8); LYMPH % 12 % (24-48); MEAN CORPUSCULAR HEMOGLOBIN 27 pg (25-35); MEAN CORPUSCULAR HGB CONC 32 g/dL (31-37); MEAN CORPUSCULAR VOLUME 84 fL (79-100); MONO # 1.4 x10^3/uL (0.0-1.1); MONO % 13 % (0-9); NEUT # 7.6 x10^3uL (1.8-7.7); NEUT % 73 % (31-73); PLATELET COUNT 191 x10^3/uL (140-400); RED BLOOD COUNT 4.53 x10^6/uL (4.30-5.70); RED CELL DISTRIBUTION WIDTH 14.5 % (11.5-14.5); WHITE BLOOD COUNT 10.4 x10^3/uL (4.0-11.0)
--- NOTE | 2021-05-23 11:50 | RAD ---
INDICATION: Reason: SHORT OF BREATH, COVID POSITIVE / Spl. Instructions: / History: COMPARISON: November 2017 FINDINGS: Single view of chest obtained. Enlarged cardiomediastinal silhouette. Mild interstitial and groundglass opacities are suspected bila terally. No gross osseous destructive lesion. IMPRESSION: * Mild interstitial and groundglass opacities are suspected bilaterally. Could be secondary to mild pulmonary vascular congestion or interstitial infiltrate. Electronically signed by: Donald Clark MD (05/23/2021 11:47 AM) [id number]
[2021-05-23 13:00] VITALS: BP 153/93
[2021-05-23 13:06] LABS: CALCIUM 8.5 mg/dL (8.5-10.1); CREATININE 1.2 mg/dL (0.7-1.3); GFR 63.3; POTASSIUM 3.8 mmol/L (3.5-5.1)
[2021-05-23 13:11] LABS: ALBUMIN 3.6 g/dL (3.4-5.0); ALBUMIN/GLOBULIN RATIO 1.6 (1.0-1.7); TOTAL BILIRUBIN 0.4 mg/dL (0.2-1.0); TOTAL PROTEIN 5.9 g/dL (6.4-8.2)
--- NOTE | 2021-05-23 19:21 | EKG ---
[address] [address] Test Date: 2021-05-23 Test Time: 11:07:37 Pat Name: SORIN QUINTEROS Department: Room: Gender: M [employer] Supervisor: SUSIE : [id number] Requested By: PATY PRASAD Order Number: [id number] Reading MD: Measurements Intervals [place] Rate: 94 P: 59 NC: 168 QRS: -36 QRSD: 94 T: 64 QT: 332 QTc: 415 Interpretive Statements SINUS RHYTHM ABNORMAL LEFT AXIS DEVIATION R-S TRANSITION ZONE IN V LEADS DISPLACED TO THE LEFT LEFT ANTERIOR FASCICULAR BLOCK ABNORMAL ECG RI6.02 No previous ECG available for comparison
== END 2021-05-23 13:40 | disposition home or self-care (01) ==
LOC: ER 10:48
DX: U07.1 COVID-19 (principal); J44.9 Chronic obstructive pulmonary disease, unspecified; F32.9 Major depressive disorder, single episode, unspecified; E11.9 Type 2 diabetes mellitus without complications; I10 Essential (primary) hypertension; Z88.8 Allergy status to other drugs, medicaments and biological substances; Z88.6 Allergy status to analgesic agent
CPT/HCPCS: 36415; 71045; 80053; 83605; 84484; 85025; 87040; 93005; 96360; 99285; J7030